=== PATIENT | male | born 1965 | race Caucasian/White ===

== ENCOUNTER 2023-06-24 20:29 | Inpatient (IN) ==
--- OUTSIDE RECORDS SUMMARY | 2023-06-24 20:35 | External Medical Summary | Summary of Care ---
Author Name Unknown Organization [facility] Address [address] [place] [address] Phone [phone] Care Team Providers Care Shake Out Worker Name Role Phone Ricky Perdue MD Primary Care Provider [phone] Reason for Visit * Auth/Cert Specialty Diagnoses / Procedures Referred By Lorraine jensen Referred To Contact Diagnoses History of colon polyps History of colon polyps [Z86.010] Procedures COLONOSCOPY, DIAGNOSTIC (RECTUM) COLONOSCOPY FLEXIBLE PROXIMAL DIAGNOSTIC Referral ID Status Reason Start Date Expiration Date Visits Re quested Visits Authorized [id number] Encounter Details Date Type Department Care Team Description 01/22/2023 Hospital Encounter ENDO [facility], Endoscopy Room [facility] [address] [place] [phone] Roula Drew, [address] [place] [address] Colonoscopy Allergies Active Allergy Reactions Severity Noted Date Comments Morphine And Related 01/14/2005 GI upset documented as of this encounter (statuses as of 01/23/2023) Medications Medication Sig Dispensed Refills Start Date End Date Status CPAP every night at bedtime. 0 Active Omeprazole 20 MG Oral Capsule Delayed Release (PriLOSEC) Take 1 Capsule by mouth in the morning. 30 Capsule 11 07/28/2022 Active Fluticasone Propionate 50 MCG/ACT Nasal Suspension (Flonase)Indicatio ns:Allergic rhinitis, seasonal Administer 2 Sprays into nostril in the morning. 16 g 6 09/16/2022 Active Additional Information Patient taking differently:2 [place] Nasal Daily(AM),Indications: as needed, Reported on 01/21/2023 Gabapentin 100 MG Oral Capsule (Neurontin)Indicat ions:Periodic limb movements of sleep TAKE 1 CAPSULE BY MOUTH ONCE DAILY BEST IF TAKEN 90 MINUTES BEFORE BEDTIME 30 Capsule 3 10/20/2022 Active Oxymetazoline HCl 0.05 % Nasal Solution Administer 2 Sprays into each nostril 2 times a day as needed for Congestion (for congestion). Do not use for more than three days. 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 Prediabetes 07/11/2019 JAIR (obstructive sleep apnea) 04/24/2019 PLMD (periodic limb movement disorder) 0 04/24/2019 Gastroesophageal reflux disease with eso phagitis 11/25/2018 Overview: Severe erosive esophagitis (EGD 2018) Dysfunction of both eustachian tubes documented as of this encounter (statuses as of 01/23/2023) Resolved Problems Problem Noted Date Resolved Date Overweight (BMI 25.0-29.9) 08/25/202208/25 Nocturnal hypoxemia 04/24/2019 11/11/2020 Primary snoring 02/28/2019 01/09/2020 Hypersomnolence disorder 02/28/2019 020 Other seborrheic keratosis 02/13/201408/04 Sebaceous hyperplasia of face 02/13/2014 Melanocytic nevus of lower extremity 02/13/2014 10/20/2018 Carpal tunnel syndrome 05/25/2007 9 ADVANCE DIRECTIVE INFORMATION 04/21/2007 Overview: No, Advance Directive brochure offered , patient declined. documented as of this encounter (statuses as of 01/23/2023) Immunizations Name Administration Dates Next Due COVID-19 mRNA, LNP-s, No Pre serve, 2-Dose Series (Pfizer) 10/09/2020,09/18/2020 COVID-19, LNP-s, No Preserve , Kit-sucrose, Ages 12+ (Pfizer) 07/15/2021 Covid-19, Mrna, Lnp-s, Pf, Bivalent, 30 Mcg, IM, 12 yrs and above (Pfizer) 06/15/2022 Seasonal Influenza, Quadriva lent, No Preserve, 6 Mons & Above, IM 05/15/2022,05/01/2021,05/31/2020, 0 19,07/07/2018 TD - Tetanus/Diptheria (ADULT) 05/15/2003 TDAP (age 10 and older)(Boostrix) 05/10/2013 documented as of this encounter Social History Tobacco Use Types Packs/Day Years Used Date Smoking Tobacco: Never Smokeless Tobacco: Never Alcohol Use Standard Drinks/Week Comments Yes 0 (1 standard drink = 0.6 oz pur e alcohol) 2 beers a month Food Insecurity Answer Date Recorded Within the past 12 months, y ou worried that your food would run out before you got money to buy more. Never true 01/09/2020 Within the past 12 months, t he food you bought just didn't last and you didn't have money to get more. Never true 01/09/2020 Sex Assigned at Date Recorded Not on file Job Start Date Occupation Industry Not on file Not on file Not on file documented as of this encounter Last Filed Vital Signs Vital Sign Reading Time Taken Comments Blood Pressure 122/86 01/22/2023 11:48 AM EDT Pulse 57 01/22/2023 11:48 AM EDT Temperature 36.1 C (97 F) 01/22/2023 11:48 AM EDT Respiratory Rate 16 01/22/2023 11:48 AM EDT Oxygen Saturation 97% 01/22/2023 11:48 AM EDT Inhaled Oxygen Concentration - - Weight 102.1 kg (225 lb) 01/22/2023 10:15 AM EDT Height 182.9 cm (6') 01/22/2023 10:15 AM EDT Body Mass Index 30.52 01/22/2023 10:15 AM EDT documented in this encounter H&P Notes * Roula Drew DO - 01/22/2023 10:27 AM EDT Procedure(s): Colonoscopy; with Indication(s) of colon polyp surveillance Endoscopy Pre-Procedure Assessment: Prior to the procedure, the patient was identified. The patient's history, medications and allergies were reviewed as per the Anesthesia Assessment. The patient is competent. The risks and benefits of the proposed procedure and the planned sedation were discussed with the patient. All questions were answered and informed consent for the procedure was obtained. BP 152/96 | Pulse 76 | Temp (Src) 98.8 (Tympanic) | Resp 18 | Ht 5' 0" (1.524m) | Wt 165 lbs (74.844kg) | BMI 32.22 kg/m | BSA 1.78 m | SaO2 99% | LMP 08/13/2004 Prior to Admission medications Medication Sig Last Dose Discont. Gabapentin 100 MG Oral Capsule (Neurontin) TAKE 1 CAPSULE BY MOUTH ONCE DAILY BEST IF TAKEN 90 MINUTES BEFORE BEDTIME 01/20/2023 Oxymetazoline HCl 0.05 % Nasal Solution Administer 2 Sprays into each nostril 2 times a day as needed for Congestion (for congestion). Do not use for more than three days. Past Week Omeprazole 20 MG Oral Capsule Delayed Release (PriLOSEC) Take 1 Capsule by mouth in the morning. 01/21/2023 CPAP every night at bedtime. 01/20/2023 Fluticasone Propionate 50 MCG/ACT Nasal Suspension (Flonase) Administer 2 Sprays into nostril in the morning. Patient taking differently: Administer 2 Sprays into nostril in the morning. Over 30 Days Review of patient's allergies indicates: Allergen Reactions Morphine And Related GI upset Physical Exam: Mental Status Examination: alert and oriented. Airway Examination: normal oropharyngeal airway and neck mobility. Respiratory Examination: clear to auscultation. CV Examination: rrr, no murmurs, no S-3 or S-4. ASA Grade: II - A patient with mild systemic disease. After reviewing the risks and benefits, the patient was deemed in satisfactory condition to undergothe procedure. The anesthesia plan was to use general anesthesia. documented in this encounter Procedure Notes * Ricky Perdue MD - 01/22/2023 10:38 AM EDTAssociated Order(s): COLONOSCOPY [facility] Patient Name: Javan Lopez Procedure Date: 01/22/2023 10:38 AM Date of : 1965 Admit Type: Outpatient Note Status: Finalized Date of : 1965 Admit Type: Outpatient Age: 57 Room: [facility] Gender: Male Note Status: Finalized Procedure: Colonoscopy Indications: Surveillance: Personal history of adenomatous polyps on last colonoscopy 5 years ago, Last colonoscopy: September 2016 Providers: Roula Drew DO (Doctor) Referring MD: Ricky Perdue MD (Referring MD) Medicines: Propofol per Anesthesia Complications: No immediate complications. Estimated blood loss: None. Procedure: Pre-Anesthesia Assessment: - Prior to the procedure, a History and Physical was performed, and patient medications, allergies and sensitivities were reviewed. The patient's tolerance of previous anesthesia was reviewed. - The risks and benefits of the procedure and the sedation options and risks were discussed with the patient. All questions were answered and informed consent was obtained. - Patient identification and proposed procedure were verified prior to the procedure by the physician and the nurse. The procedure was verified in the pre-procedure area in the procedure room. - Mental Status Examination: alert and oriented. Airway Examination: normal oropharyngeal airway and neck mobility. Respiratory Examination: clear to auscultation. CV Examination: normal. Abdominal Examination: bowel sounds present, abdomen soft and non-tender, no masses or organomegaly noted. - ASA Grade Assessment: II - A patient with mild systemic disease. - The medication list for this patient has been reviewed prior to the procedure and has been determined that the patient may proceed with the planned study. Any medication changes made as a result of the findings of this procedure have been discussed with the patient and/or self pay representative at the time of discharge from the facility. After I obtained informed consent, the scope was passed under direct vision. All instruments were visually inspected immediately before and after removal from the patient to ensure they are fully intact. Throughout the procedure, the patient's blood pressure, pulse, and oxygen saturations were monitored continuously. The [id number] Colonoscope ([id number]) was introduced through the anus and advanced to the cecum, identified by appendiceal orifice and ileocecal valve. The colonoscopy was performed without difficulty. The patient tolerated the procedure well. The quality of the bowel preparation was good. Findings & Specimens: The perianal and digital rectal examinations were normal. Pertinent negatives include normal sphincter tone and no palpable rectal lesions. The entire examined colon appeared normal on direct and retroflexion views. Impression: - The entire examined colon is normal on direct and retroflexion views. - No specimens collected. Recommendation: - Repeat colonoscopy in 5 years for surveillance. - Return to primary care physician as previously scheduled. - Discharge patient to home. Roula Jensen Viki, 01/22/2023 11:02:51 AM This report has been signed electronically. documented in this encounter Nursing Notes * Rosaura Christianson RN - 01/22/2023 11:12 AM EDT 1105 Patient arrived to PACU2 s/p colonoscopy. Patient waking up without complication. No complaints of pain noted. Iv fluids infusing per Md order without complication. Report received by YVETTE. RN at bedside. * Alysia De Jesus RN - 01/22/2023 11:01 AM EDT No abdominal pressure given See anesthesia record for medication administered during procedure. Alysia De Jesus RN Post-procedure scope cleaning began at bedside by endo dermatology technician Pt. Tolerated colonoscopy well, no complications, soundly asleep, abdomen soft, transported to postendoscopy via stretcher by YVETTE. * Cielo Strong RN - 01/22/2023 10:32 AM EDT The following pt discharge instructions reviewed with pt prior to prodedure: No driving today. No alcohol today. No signing of legal documents. Rest as much as possible today and can return to normal activities tomorrow. No operating any heavy equipment today. Diet as tolerated. Pt verbalized understanding. documented in this encounter Plan of Treatment Upcoming Encounters Date Type Specialty Care Team Description 05/07/2023 Office Visit Sleep Disorders Radha Mitchell, DO [address] [place] [id number] Scheduled Procedures Name Priority Associated Diagnoses Date/Ti me ESOPHAGOGASTRODUODENOSCOPY ( EGD), FLEXIBLE, TRANSORAL, DIAGNOSTIC Recall Boucher's esophagus Health Maintenance Due Date Last Done Comments Hepatitis B (1 of 3 - 3-dose series) 1965 HIV Screening 1981 Hepatitis C Screening 1984 Zoster Vaccines (1 of 2) 2016 Depression Screening, Annual for Pts 12 and Over 11/11/2021 11/11/2020 DTaP,Tdap,and Td Vaccines (2 - Td or Tdap) 05/10/2023 05/10/2013, 05/15/2003 HbA1c 08/28/2023 08/28/2022, 09/2021, 01/10/2020, Additional history exists Lipid Panel 10/22/2023 10/21/2018, 01/31, 05/11/2013, Additional history exists COLONOSCOPY-EVERY 5 YRS AGES 18-100 01/23/2028 01/22/2023, 09/18/2016, 09/18/2016 Influenza Vaccine (FLU shot) Completed , 05/01/2021, 05/31/2020, Additional history exists COVID-19 Vaccine Completed 06/15/2022, , 10/09/2020, Additional history exists GARDASIL-HPV IMMUNIZATION SERIES Aged Out No longer eligible based on patient's age to complete this topic MENINGOCOCCAL (MENACTRA/MENVEO) Aged Out No longer eligible based on patient's age to complete this topic Pneumococcal Vaccine: Pediatrics (0 to 5 Years) and At-Risk Patients (6 to 64 Years) Aged Out No longer eligible based on patient's age to complete this topic documented as of this encounter Medical Devices Not on filedocumented as of this encounter Procedures Procedure Name Priority Date/Time Associated Diagnosis Comments COLONOSCOPY 01/22/2023 10:38 AM EDT documented in this encounter Results * COLONOSCOPY (01/22/2023 10:38 AM EDT) 01/22/2023 10:3 8 AM EDT Procedure Note Ricky Perdue MD - 01/22/2023 10:38 AM EDT [facility] Patient Name: Javan Lopez Procedure Date: 01/22/2023 10:38 AM Date of : 1965 Admit Type: Outpatient Note Status:Finalized Date of : 1965 Admit Type: Outpatient Age: 57 Room: [facility] Gender: Male Note Status: Finalized Procedure: Colonoscopy Indications: Surveillance: Personal history of adenomatouspolyps on last colonoscopy 5 years ago, Last colonoscopy: September 2016 Providers: Roula Drew DO (Doctor) Referring MD: Ricky Perdue MD (Referring MD) Medicines: Propofol per Anesthesia Complications: No immediate complications. Estimated blood loss:None. Procedure: Pre-Anesthesia Assessment: - Prior to the procedure, a History and Physicalwas performed, and patient medications, allergies and sensitivities werereviewed. The patient's tolerance of previous anesthesia was reviewed. - The risks and benefits of the procedure and thesedation options and risks were discussed with the patient. All questions wereanswered and informed consent was obtained. - Patient identification and proposed procedurewere verified prior to the procedure by the physician and the nurse. The procedure wasverified in the pre-procedure area in the procedure room. - Mental Status Examination: alert and oriented.Airway Examination: normal oropharyngeal airway and neck mobility. RespiratoryExamination: clear to auscultation. CV Examination: normal. AbdominalExamination: bowel sounds present, abdomen soft and non-tender, no masses ororganomegaly noted. - ASA Grade Assessment: II - A patient with mildsystemic disease. - The medication list for this patient has beenreviewed prior to the procedure and has been determined that the patient may proceedwith the planned study. Any medication changes made as a result of the findingsof this procedure have been discussed with the patient and/or self pay representative atthe time of discharge from the facility. After I obtained informed consent, the scope waspassed under direct vision. All instruments were visually inspected immediatelybefore and after removal from the patient to ensure they are fully intact. Throughout the procedure, the patient's bloodpressure, pulse, and oxygen saturations were monitored continuously. The [id number] ([id number]) was introduced through the anus and advanced to the cecum,identified by appendiceal orifice and ileocecal valve. The colonoscopy was performedwithout difficulty. The patient tolerated the procedure well. The quality of thebowel preparation was good. Findings & Specimens: The perianal and digital rectal examinations were normal. Pertinentnegatives include normal sphincter tone and no palpable rectal lesions. The entire examined colon appeared normal on direct and retroflexionviews. Impression: - The entire examined colon is normal on direct andretroflexion views. - No specimens collected. Recommendation: - Repeat colonoscopy in 5 years for surveillance. - Return to primary care physician as previouslyscheduled. - Discharge patient to home. Roula T DO Viki 01/22/2023 11:02:51 AM This report has been signed electronically. Ricky Perdue MD GASTRO LOWER documented in this encounter Administered Medications Inactive Administered Medications - up to 3 most recent administrations Medication Order MAR Action Action Date Dose Rate Site isolyte-S pH 7.4 infusion Intravenous, at 100 mL/hr, Plasma-LYTE 148, isolyte-S, and isolyte-S pH 7.4 are considered equivalent - including for MAR barcode scanning., CONTINUOUS, Starting on Wed01/22/23 at 1100, Until Wed01/22/23 at 1605, Pre-Op New Bag 01/22/2023 11:00 AM EDT 100 mL/hr isolyte-S pH 7.4 infusion Intravenous, at 100 mL/hr, Plasma-LYTE 148, isolyte-S, and isolyte-S pH 7.4 are considered equivalent - including for MAR barcode scanning., CONTINUOUS, Starting on Wed01/22/23 at 1145, Until Wed01/22/23 at 1605, Post-op documented in this encounter Active and Recently Administered Medications Times are shown in EDT. Continuous Medication Order 01/20/2023 01/21/202301/22/2023 isolyte-S pH 7.4 infusion Intravenous, at 100 mL/hr, Plasma-LYTE 148, isolyte-S, and isolyte-S pH 7.4 are considered equivalent - including for MAR barcode scanning., CONTINUOUS, Starting on Wed01/22/23 at 1100, Until Wed01/22/23 at 1605, Pre-Op 1100 (New Bag - Prov ider: Cielo Strong RN)1106 (Anes Intra-Op Fluid - Provider: Meka Olmstead CRNA) isolyte-S pH 7.4 infusion Intravenous, at 100 mL/hr, Plasma-LYTE 148, isolyte-S, and isolyte-S pH 7.4 are considered equivalent - including for MAR barcode scanning., CONTINUOUS, Starting on Wed01/22/23 at 1145, Until Wed01/22/23 at 1605, Post-op 1145 (Due) documented in this encounter Care Teams Shake Out Worker Relationship Specialty Start Date End Date Ricky Perdue MD [address] [facility] [place] [address] PCP - General Family Medicine 09/22/16 documented as of this encounter
--- OUTSIDE RECORDS SUMMARY | 2023-06-24 20:35 | External Medical Summary | Summary of Care ---
Author Name Unknown Organization [facility] Address [address] [place] [address] Phone [phone] Care Team Providers Care Nick Setter Name Role Phone Ricky Perdue MD Primary Care Provider [phone] Reason for Visit * Reason Onset Date Comments Medication Refill 01/16/2023 Encounter Details Date Type Department Care Team Description 01/16/2023 Refill Family Practice [facility] [address] [facility] [place] [address] [place], [address] [place] [address] Allergic rhinitis, seasonal Allergies Active Allergy Reactions Severity Noted Date Comments Morphine And Related 01/14/2005 GI upset documented as of this encounter (statuses as of 01/29/2023) Medications Medication Sig Dispensed Refills Start Date End Date Status CPAP every night at bedtime. 0 Active Omeprazole 20 MG Oral Capsule Delayed Release (PriLOSEC) Take 1 Capsule by mouth in the morning. 30 Capsule 11 07/28/2022 Active Gabapentin 100 MG Oral Capsule (Neurontin)Indic ations:Periodic limb movements of sleep TAKE 1 CAPSULE [...] Additional Information Patient not taking.Reported on 01/22/2023 Fluticasone Propionate 50 MCG/ACT Nasal Suspension (Flonase)Indicat ions:Allergic rhinitis, seasonal Administer 2 Sprays into nostril in the morning. 16 g 6 01/29/2023 Active Fluticasone Propionate 50 MCG/ACT Nasal Suspension (Flonase)Indicat ions:Allergic rhinitis, seasonal Administer 2 Sprays into nostril in the morning. 16 g 6 09/16/2022 3 Discontinue d(Refill) documented as of this encounter (statuses as of 01/29/2023) Active Problems Problem Noted Date Obesity, Class [...] as of this encounter (statuses as of 01/29/2023) Resolved Problems Problem Noted Date Resolved Date [...] as of this encounter (statuses as of 01/29/2023) Immunizations Name Administration Dates Next Due COVID-19 mRNA, LNP-s, No Pre serve, 2-Dose Series ([employer]) 10/09/2020,09/18/2020 COVID-19, LNP-s, No Preserve , Kit-sucrose, [...] on file documented as of this encounter Miscellaneous Notes * Telephone Encounter - Ara Mitchell DO - 01/29/2023 4:03 PM EDTSigned Prescriptions: Disp Refills Fluticasone Propionate 50 MCG/ACT Nasal Hernandez*16 g 6 Sig: Administer 2 Sprays into nostril in the morning. Authorizing Provider: ARA MITCHELL * Telephone Encounter - Eve [place] DO - 01/18/2023 9:20 AM EDT Pending Prescriptions: Disp Refills Fluticasone Propionate 50 MCG/ACT Nasal Hernandez*16 g 6 Sig: Administer 2 Sprays into nostril in the morning. * Telephone Encounter - Elisa Mcfadden LPN - 01/18/2023 8:03 AM EDTPending Prescriptions: Disp Refills Fluticasone Propionate 50 MCG/ACT Nasal Hernandez*16 g 6 Sig: Administer 2 Sprays into nostril in the morning. documented in this encounter Plan of Treatment Upcoming Encounters Date Type Specialty Care Team Description 05/07/2023 Office Visit Sleep Disorders Ara Mitchell DO [address] [place] [id number] Scheduled Procedures Name Priority Associated Diagnoses Date/Ti [...] COLONOSCOPY-EVERY 5 YRS AGES 18-100 01/23/2028 01/22/2023, 01/22/2023, 09/18/2016, Additional history exists Influenza Vaccine (FLU shot) Completed , 05/01/2021, [...] Not on filedocumented as of this encounter Visit Diagnoses Diagnosis Allergic rhinitis, seasonal Allergic rhinitis, cause unspecified documented in this encounter Care Teams Nick Setter Relationship Specialty Start Date End Date Ricky Perdue MD [address] [facility] [place] [address] PCP - General Family Medicine 09/22/16 documented as of this encounter
--- OUTSIDE RECORDS SUMMARY | 2023-06-24 20:35 | External Medical Summary | Summary of Care ---
Author Name Unknown Organization [facility] Address [address] [place] [address] Phone [phone] Care Team Providers Care Microsoft Infrastructure Consultant Name Role Phone Ricky Perdue MD Primary Care Provider [phone] Reason for Visit * Reason Onset Date Comments Medication Administration 04/27/2023 Flu an d/or Pneumo Inj Encounter Details Date Type Department Care Team Description 04/27/2023 Immunization Ancillary [facility] [address] [place] [address] [facility] [address] [place] [address] Need for prophylactic vaccination and inoculation against influenza* Allergies Active Allergy Reactions Severity Noted Date Comments Morphine And Related 01/14/2005 GI upset documented as of this encounter (statuses as of 04/27/2023) Medications Medication Sig Dispensed Refills Start Date End Date Status CPAP every night at bedtime. 0 Active Omeprazole 20 MG Oral Capsule Delayed Release (PriLOSEC) Take 1 Capsule by mouth in the morning. 30 Capsule 11 07/28/2022 Active Oxymetazoline HCl 0.05 % Nasal Solution Administer 2 Sprays into each nostril 2 times a day as needed for Congestion (for congestion). Do not use for more than three days. 15 mL 0 10/15/2022 Active Additional Information Patient not taking.Reported on 01/22/2023 Fluticasone Propionate 50 MCG/ACT Nasal Suspension (Flonase)Indicatio ns:Allergic rhinitis, seasonal Administer 2 Sprays into nostril in the morning. 16 g 6 01/29/2023 Active Gabapentin 100 MG Oral Capsule (Neurontin)Indicat ions:Periodic limb movements of sleep TAKE 1 CAPSULE BY MOUTH ONCE DAILY 90 MINUTES BEFORE BEDTIME 30 Capsule 3 02/05/2023 Active documented as of this encounter (statuses as of 04/27/2023) Active Problems Problem Noted Date Obesity, Class [...] as of this encounter (statuses as of 04/27/2023) Resolved Problems Problem Noted Date Resolved Date [...] as of this encounter (statuses as of 04/27/2023) Immunizations Name Administration Dates Next Due COVID-19 mRNA, LNP-s, No Pre serve, 2-Dose Series ([employer]) 10/09/2020,09/18/2020 COVID-19, LNP-s, No Preserve , Kit-sucrose, Ages 12+ ([employer]) 07/15/2021 Covid-19, Mrna, Lnp-s, Pf, Bivalent, 30 Mcg, IM, 12 yrs and above (Pfizer) 06/15/2022 Seasonal Influenza, PF, 6 mo ns & Above, IM , (Flulaval) 04/27/2023,05/15/2022,05/01/2021, 0 20,05/30/2019,07/07/2018 TD - Tetanus/Diptheria (ADULT) 05/15/2003 TDAP (age [...] on file documented as of this encounter Progress Notes * Leeanne Johnston LPN - 04/27/2023 11:54 AM EDT PRE - ADMINISTRATION DOCUMENTATION Are you experiencing any cold symptoms or fever? No Have you had Guillain-[place] Syndrome (an illness that causes paralysis) within the last 6 weeks? No Have you had the flu shot in the past? YES Have you ever had a reaction to the flu shot? No Leeanne Johnston LPN, 04/27/2023 11:54 AM Immunization Administration Documentation Time Out Procedure Performed: Yes Patient Identified (Ask Name/Date of ): Yes Does the patient have a fever greater than 101 degrees today? No Patient allergic to latex? No VFC Stock: No Injection(s) verified: Yes, Injection Name: Flulaval Verified Side and Site: Yes Verified Shot(s) with Parent(s)/Patient: Yes documented in this encounter Plan of Treatment Upcoming Encounters Date Type Specialty Care Team Description 08/18/2023 Office Visit Sleep Disorders Lien Peters CRNP [address] [place] [address] Scheduled Procedures Name Priority Associated Diagnoses Date/Ti me ESOPHAGOGASTRODUODENOSCOPY ( EGD), FLEXIBLE, TRANSORAL, DIAGNOSTIC Recall Boucher's esophagus Health Maintenance Due Date Last Done Comments Hepatitis B (1 of 3 - 3-dose series) 1966 HIV Screening 1981 Hepatitis C Screening 1984 Zoster Vaccines (1 of 2) 2016 Depression Screening 11/11/2021 11/11/2020 DTaP,Tdap,and Td Vaccines (2 - Td or Tdap) 05/10/2023 05/10/2013, 05/15/2003 HbA1c 08/28/2023 08/28/2022, 09/2021, 01/10/2020, Additional history exists Lipid Panel 10/22/2023 10/21/2018, 01/31, 05/11/2013, Additional history exists COLONOSCOPY-EVERY 5 YRS AGES 18-100 01/23/2028 01/22/2023, 01/22/2023, 09/18/2016, Additional history exists COVID-19 Vaccine Completed 06/15/2022, , 10/09/2020, Additional history exists Influenza Vaccine (FLU shot) Completed , 05/15/2022, 05/01/2021, Additional history exists GARDASIL-HPV IMMUNIZATION SERIES Aged [...] as of this encounter Visit Diagnoses Diagnosis Need for prophylactic vaccination and inoculation against influenza- Primary documented in this encounter Care Teams Microsoft Infrastructure Consultant Relationship Specialty Start Date End Date Ricky Perdue MD [address] [place] [address] PCP - General Family Medicine 09/22/16 documented as of this encounter
--- OUTSIDE RECORDS SUMMARY | 2023-06-24 20:35 | External Medical Summary | Summary of Care ---
Author Name Unknown Organization [facility] Address [address] [place] [address] Phone [phone] Care Team Providers Care Family Psychologist Name Role Phone Ricky Perdue MD Primary Care Provider [phone] Reason for Visit * Reason Onset Date Comments Durable Medical Equipment 03/08/2023 CPAP R esupply Encounter Details Date Type Department Care Team Description 03/08/2023 Telephone Sleep Lab [facility] [address] [place] [address] Renaldo Ramires, JUNIOR ART DIRECTOR Durable Medical Equipment (CPAP Resupply ) Allergies Active Allergy Reactions Severity Noted Date Comments Morphine And Related 01/14/2005 GI upset documented as of this encounter (statuses as of 03/10/2023) Medications Medication Sig Dispensed Refills Start Date [...] as of this encounter (statuses as of 03/10/2023) Active Problems Problem Noted Date Obesity, Class [...] as of this encounter (statuses as of 03/10/2023) Resolved Problems Problem Noted Date Resolved Date [...] as of this encounter (statuses as of 03/10/2023) Immunizations Name Administration Dates Next Due COVID-19 mRNA, LNP-s, No Pre serve, 2-Dose Series ([employer]) 10/09/2020,09/18/2020 COVID-19, LNP-s, No Preserve , Kit-sucrose, Ages 12+ (Pfizer) 07/15/2021 Covid-19, Mrna, Lnp-s, Pf, Bivalent, 30 Mcg, IM, 12 yrs and above ([employer]) 06/15/2022 Seasonal Influenza, Quadriva lent, No Preserve, [...] encounter Miscellaneous Notes * Telephone Encounter - Renaldo Ramires RRT - 03/08/2023 2:22 PM EDT PPM Order [id number] Order Items Add Items to Order: Enter Product Id or Description Product Number Qty Description Remove [id number] DREAM STATION DISPOSABLE ULTRA-FINE FILTER - 6-PACK Remove [id number] 1 DREAM STATION REUSABLE POLLEN FILTER - 1-PACK Remove [id number] AIRFIT F20 MEDIUM CUSHION * Telephone Encounter - JAIR Matthews - 03/08/2023 1:41 PM EDT [facility] [id number] MADDIE BS [employer] Eligible for non disp filters, and 3 months supply cushions and disp filters Pt request for specific supplies at this time * Telephone Encounter - Renaldo Ramires RRT - 03/08/2023 8:46 AM EDT Contacted via: email and phone Requested items: cushions, disp and non disp filters only Mask: Resmed Airfit F20 FFM-Medium Tubing: PR15 Machine: DS1 Last office visit: 04/28/2022 Order date: 09/07/2022 Current insurance: [employer] [id number] Compliance data:Compliance Information 02/06/2023 - 03/07/2023 Compliance Summary 02/06/2023 - 03/07/2023 (30 days) Days with Device Usage 30 days Days without Device Usage 0 days Percent Days with Device Usage 100.0% Percent of Days with Usage >= 4 Hours 96.7% Percent of Days with Usage < 4 Hours 3.3% Beata Lopez < > Renaldo Ramires 03/07/2023 11:29 AM External: Be careful with links and files. If suspicious, alert the Medical Reception Office. Questions? Call [phone] Ramon Macario, I need the following: Cushions Filters Washable filter Vanna Edouard documented in this encounter Plan of Treatment Upcoming Encounters Date Type Specialty Care Team Description 05/07/2023 Office Visit Sleep Disorders Radha Mitchell, DO [address] [place] [address] Scheduled Procedures Name Priority Associated Diagnoses Date/Ti me ESOPHAGOGASTRODUODENOSCOPY ( EGD), FLEXIBLE, TRANSORAL, DIAGNOSTIC Recall Boucher's esophagus Health Maintenance Due Date Last Done Comments Hepatitis B (1 of 3 - 3-dose series) 1966 HIV Screening 1981 Hepatitis C Screening 1984 Zoster Vaccines (1 of 2) 2016 Depression Screening, Annual for Pts 12 and Over 11/11/2021 11/11/2020 Influenza Vaccine (FLU shot) (#1) 2023 05/15/2022, 05/01/2021, 05/31/2020, Additional history exists DTaP,Tdap,and Td Vaccines (2 - Td or [...] Not on filedocumented as of this encounter Care Teams Family Psychologist Relationship Specialty Start Date End Date Ricky Perdue MD [address] [place] [address] PCP - General Family Medicine 09/22/16 documented as of this encounter
--- OUTSIDE RECORDS SUMMARY | 2023-06-24 20:35 | External Medical Summary | Summary of Care ---
Author Name Unknown Organization [facility] Address [address] [place] [address] Phone [phone] Care Team Providers Care Computer Service Technician Name Role Phone Ricky Perdue MD Primary Care Provider [phone] Reason for Visit * Reason Comments eRx-Medication Refill Encounter Details Date Type Department Care Team (Late st Contact Info) Description 06/18/2023 [facility] [address] [place] [address] Ara Mitchell, [address] [place] [address] Periodic limb movements of sleep Allergies Active Allergy Reactions Criticality Noted Date Comments Morphine And Related 01/14/2005 GI upset documented as of this encounter (statuses as of 06/19/2023) Medications Medication Sig Dispensed Refills Start Date [...] 01/29/2023 Active Gabapentin 100 MG Oral Capsule (Neurontin)Indic ations:Periodic limb movements of sleep TAKE 1 CAPSULE BY MOUTH ONCE DAILY 90 MINUTES BEFORE BEDTIME 30 Capsule 3 06/19/2023 Active Gabapentin 100 MG Oral Capsule (Neurontin)Indic ations:Periodic limb movements of sleep TAKE 1 CAPSULE BY MOUTH ONCE DAILY 90 MINUTES BEFORE BEDTIME 30 Capsule 3 02/05/2023 3 Discontinued documented as of this encounter (statuses as of 06/19/2023) Active Problems Problem Noted Date Diagnosed Date Obesity, Class I, BMI 30.0-34.9 (see actual BMI) 08/25/2022 Lumbar degenerative disc disease 08/25/2022 Boucher's esophagus without dysplasia 11/10/2020 Prediabetes 07/11/2019 JAIR (obstructive sleep apnea) 04/24/2019 PLMD (periodic limb movement disorder) 9 Gastroesophageal reflux disease with esophagitis 11/25/2018 Overview: Severe erosive esophagitis (EGD 2018) Dysfunction of both eustachian tubes 10/20/2018 documented as of this encounter (statuses as of 06/19/2023) Resolved Problems Problem Noted Date Diagnosed Date Resolved Date Overweight (BMI 25.0-29.9) 08/25/2022 0 08/25/2022 Nocturnal hypoxemia 04/24/2019 11/12/19 21 Primary snoring 02/28/2019 01/09/2020 Hypersomnolence disorder 02/28/201904/2020 Other seborrheic keratosis 02/13/2014 0 08/04/2018 Sebaceous hyperplasia of face 02/13/2014 08/04/2018 Melanocytic nevus of lower extremity 02/13/2014 10/20/2018 Carpal tunnel syndrome 05/25/200708/04 ADVANCE DIRECTIVE INFORMATION 04/21/2007 07/09/2016 Overview: No, Advance Directive brochure offered , patient declined. documented as of this encounter (statuses as of 06/19/2023) Immunizations Name Administration Dates Next Due COVID-19 mRNA, LNP-s, No Pre serve, 2-Dose Series ([employer]) 10/09/2020,09/18/2020 COVID-19, LNP-s, No Preserve , Kit-sucrose, Ages 12+ (Pfizer) 07/15/2021 Covid-19, Mrna, Lnp-s, Pf, Bivalent, 30 Mcg, IM, 12 yrs and above (Pfizer) 06/15/2022 SEASONAL INFLUENZA, PF, 6 M & Above, IM , (FLULAVAL or FLUZONE) 04/27/2023,05/15/2022,05/01/2021, 0 20,05/30/2019,07/07/2018 TD - Tetanus/Diptheria (ADULT) 05/15/2003 TDAP (age 10 and older)([employer]) 05/10/2013 documented as of this encounter Social History Tobacco Use Types Packs/Day Years Used Date Smoking Tobacco: Never Smokeless Tobacco: Never Alcohol Use Standard Drinks/Week Comments Yes 0 (1 standard drink = 0.6 oz pur e alcohol) 2 beers a month PHQ-2 Answer Date Recorded PHQ Adult Total Score 0 11/11/2020 Hunger Vital Sign Answer Date Recorded Worried About Running Out of Food in the Last Ye ar Never true 01/09/2020 Ran Out of Food in the Last Year Never true 01/09/2020 Sex and Gender Information Value Date Recorded Sex Assigned at Not on file Gender Identity Not on file Sexual Orientation Not on file Job Start Date Occupation Industry Not on file Not on file Not on file documented as of this encounter Miscellaneous Notes * Telephone Encounter - Ara Mitchell DO - 06/19/2023 6:26 PM ESTSigned Prescriptions: Disp Refills Gabapentin 100 MG Oral Capsule (Neurontin) 30 Cap*3 Sig: TAKE 1 CAPSULE BY MOUTH ONCE DAILY 90 MINUTES BEFORE BEDTIMEAuthorizing Provider: ARA MITCHELL------- documented in this encounter Plan of Treatment Upcoming Encounters Date Type Department Care Team (Late st Contact Info) Description 08/18/2023 4:00 PM EST Office Visit Sleep Disorders Ctr [facility] [address] [place] [address] Lien Peters CRNP [address] [place] [address] Scheduled Procedures Name Priority Associated Diagnoses Date/Ti me COLONOSCOPY FLEXIBLE PROXIMAL DIAGNOSTIC Recall History of colon polyps ESOPHAGOGASTRODUODENOSCOPY ( EGD), FLEXIBLE, TRANSORAL, DIAGNOSTIC Recall Boucher's esophagus Health Maintenance Due Date Last Done Comments Hepatitis B (1 of 3 - 3-dose series) 1966 HIV Screening 1981 Hepatitis C Screening 1984 Zoster Vaccines (1 of 2) 2016 Depression Screening 11/11/2021 11/11/2020 COVID-19 Vaccine ( season) 2023 06/15/2022, 07/15/2021, 10/09/2020, Additional history exists DTaP,Tdap,and Td Vaccines (2 - Td or Tdap) 05/10/2023 05/10/2013, 05/15/2003 HbA1c 08/28/2023 08/28/2022, 09/2021, 01/10/2020, Additional history exists Lipid Panel 10/22/2023 10/21/2018, 01/31, 05/11/2013, Additional history exists Boucher's Esophagus Surveilance 10/26/2023 10/25/2020, 01/20/2019, 11/25/2018 COLONOSCOPY-EVERY 5 YRS AGES 18-100 01/23/2028 01/22/2023, [...] as of this encounter Visit Diagnoses Diagnosis Periodic limb movements of sleep Periodic limb movement disorder documented in this encounter Care Teams Computer Service Technician Relationship Specialty Start Date End Date Ricky Perdue MD [address] [place] [address] PCP - General Family Medicine 09/22/16 documented as of this encounter
[2023-06-24] MEDS ORDERED: OPTIRAY 320 125ml IV ONE (20:51)
--- NOTE | 2023-06-24 20:53 | Emergency Department Note ---
Impression & Plan Right leg weakness, Dysmetria, Stroke-like symptoms ED Provider Note NAME: TRACEY AGUIRRE AGE: 58 SEX: M : 1965 ARRIVES VIA: Walk-In INFORMANT: Patient, ED PROVIDER(S): Manoj Montano DO CHIEF COMPLAINT: Strokelike symptoms HPI: The patient is a 58-year-old male who presented to the emergency department for an evaluation of strokelike symptoms. The patient states that he sneezed forcibly and then had an acute onset of right leg weakness. The patient was having difficulty ambulating. Initially he thought he was having an anxiety attack but he came to the emergency department with family for further evaluation. The patient arrived through triage. He states his symptoms began approximately 8 PM. The patient was placed into a room. After my evaluation I made the patient a stroke alert. He denies having any chest pain. He denies having any nausea or vomiting. He denies having any abdominal pain or back pain. He denies having any neck pain. The patient has no history of similar symptoms. ROS: See above HPI for pertinent positives & negatives. A total of 10 systems reviewed and were otherwise negative. PAST MEDICAL HISTORY: See Below PAST SURGICAL HISTORY: See Below FAMILY HISTORY: See Below SOCIAL HISTORY: See Below HOME MEDICATIONS: See Below ALLERGIES: See Below VITALS: See Below PHYSICAL EXAMINATION: GENERAL: The patient is awake and alert. He is very anxious appearing. EYES: The conjunctivae are clear. The pupils are round and reactive. EARS, NOSE, MOUTH AND THROAT: The nose is without any evidence of any deformity. NECK: The neck is nontender and supple. RESPIRATORY: Normal respiratory effort is noted there is no evidence of wheezing rhonchi or rales CARDIOVASCULAR: Regular rate and rhythm noted there no murmurs rubs or gallops normal S1 normal S2. GASTROINTESTINAL: The abdomen is soft. Abdomen is nontender. MUSCULOSKELETAL/EXTREMITIES: There is no evidence of gross deformity full range of motion is noted in the hips and shoulders. SKIN: There is no obvious evidence of any rash. There are no petechiae, pallor or cyanosis noted. NEUROLOGIC: Patient is awake alert and oriented x3. Patellar tendon reflexes are 2+ bilaterally. The patient is able to hold the left leg off the bed for greater than 5 seconds however when he tries to bring the right leg off the bed it becomes tremulous and drops to the bed after only few seconds. MEDICAL DECISION MAKING: The patient is a 58-year-old male who presented to the emergency department with strokelike symptoms. The patient's NIH was found to be 3 in the emergency department on initial evaluation. The patient initially presented through triage and was not made a stroke alert. After my evaluation the patient was made a stroke alert. He was reevaluated multiple times. I discussed the patient's laboratory and radiographic studies with him. I also discussed the time limitation of giving the patient TNK. Ultimately the patient was evaluated by the telestroke neurologist. The patient's presentation was not clear-cut. Family as well as the patient required multiple explanations of TNK and the indications for thrombolytics. Ultimately they did agree to TNK administration and this was ordered by myself. The patient had acceptable blood pressure noted on multiple occasions. [facility] evaluate the patient in the emergency department. Triage Nursing notes reviewed. Prior medical records reviewed Vital Signs: reviewed and remarkable for no significant abnormalities Differential diagnosis: Infection, dehydration, metabolic abnormality, hypo/hyperglycemia, electrolyte disturbance, anemia, hypoxia, cardiac sources, intracerebral event, toxicologic, neurologic, as well as other pathologies. ER treatment provided: See below Diagnostics interpreted by me: ECG: EKG was obtained in the emergency department. My interpretation is sinus rhythm at 66 bpm. There was no PVCs noted. Right bundle branch block pattern was noted. No previous tracing was available. Cardiac Monitoring: An order was placed for continuous cardiac monitoring. The monitor shows a rate of 66 beats per minute with sinus rhythm. Laboratory studies: As stated above and show below. Imaging studies: See below. Radiographic imaging was reviewed by myself Consultation(s): I discussed this case with Dr. Juan who is on for stroke neurology at [facility]. I discussed this case with Dr. Kelley who [facility] ED COURSE: Procedures: none Critical Care: I have personally spent greater than 45 minutes of critical care time in the direct management of this patient. This includes bedside care, interpretation of diagnostic studies, and testing, discussion with consultants, patient, and family members, and other required patient management activities. This 45 minutes is in excess of all separately billable procedures. Thrombolytics MDM Reason(s) for Delay: There was an extensive discussion with the family because of the vague symptoms that he presented with. Initially the patient was unsure about receiving TNK. Myself as well as the [facility] teleneurologist discussed the risk and benefits multiple times. Ultimately the patient did agree to TNK administration. Past Med/Surg History Social History Smoking Status: Never smoker Hx Alcohol Use: Yes Alcohol type: beer Hx Substance Use: No Preferred Language: Frisian Communication Ability: Effective Master Control Technician Required: No Beliefs That Will Affect Care: None Current Living Situation: Spouse Other Information That Helps Us Care for You: No Feels Safe at Home: Yes Safety Concerns: Feels Safe At This Time Assistive Devices: Glasses Allergies Allergies Allergy/AdvReac Type Severity Reaction Status Date / Time codeine AdvReac Nausea Verified 06/24/23 22:00 Home Meds Home Medications Medication Instructions Recorded Confirmed fluticasone propionate 50 2 spray intranasal QAM 06/24/23 06/24/23 mcg/actuation nasal spray,suspension gabapentin 100 mg capsule 100 mg PO HS 06/24/23 06/24/23 omeprazole 20 mg capsule,delayed 20 mg PO DAILY 06/24/23 06/24/23 release Results & Data (ED) Vital Signs Vital Signs - 24 hr 06/24/23 20:31 06/24/23 21:09 06/24/23 21:10 Temperature 36.7 C Temperature Source Temporal Artery Scan Pulse Rate 73 71 71 Pulse Rate [Apical] Pulse Rhythm Regular Pulse Rhythm [Apical] Pulse Strength Normal Pulse Strength [Apical] Respiratory Rate 17 18 Respiratory Effort / Characteristics Non-Labored Spontaneous Respiratory Depth Normal Respiratory Pattern Regular Blood Pressure 153/89 H 148/91 H Blood Pressure [Left Arm] Blood Pressure Mean 110 110 Blood Pressure Mean [Left Arm] Blood Pressure Position Sitting Blood Pressure Position [Left Arm] Pulse Oximetry 96 95 Oxygen Delivery Method Room Air Room Air Sepsis Recent Fever Within 48 Hours No Sepsis New/Unexplained Change in Mental Status N/A Sepsis Action Taken by Nursing No Action Required 06/24/23 21:30 06/24/23 21:45 06/24/23 21:45 Temperature 36.9 C Temperature Source Oral Pulse Rate 73 Pulse Rate [Apical] 65 68 Pulse Rhythm Pulse Rhythm [Apical] Pulse Strength Pulse Strength [Apical] Respiratory Rate 18 18 16 Respiratory Effort / Characteristics Non-Labored Spontaneous Respiratory Depth Normal Respiratory Pattern Regular Blood Pressure 156/91 H Blood Pressure [Left Arm] 153/97 H 151/102 H Blood Pressure Mean 112 Blood Pressure Mean [Left Arm] 115 118 Blood Pressure Position Blood Pressure Position [Left Arm] Semi-fowlers Lying Pulse Oximetry 94 97 93 Oxygen Delivery Method Room Air Room Air Sepsis Recent Fever Within 48 Hours Sepsis New/Unexplained Change in Mental Status Sepsis Action Taken by Nursing 06/24/23 22:00 06/24/23 22:15 06/24/23 22:30 Temperature 36.8 C Temperature Source Oral Pulse Rate Pulse Rate [Apical] 72 66 67 Pulse Rhythm Pulse Rhythm [Apical] Pulse Strength Pulse Strength [Apical] Respiratory Rate 16 16 16 Respiratory Effort / Characteristics Non-Labored Spontaneous Non-Labored Spontaneous Non-Labored Spontaneous Respiratory Depth Normal Normal Normal Respiratory Pattern Regular Regular Regular Blood Pressure Blood Pressure [Left Arm] 149/93 H 150/93 H 148/91 H Blood Pressure Mean Blood Pressure Mean [Left Arm] 111 112 110 Blood Pressure Position Blood Pressure Position [Left Arm] Semi-fowlers Semi-fowlers Semi-fowlers Pulse Oximetry 94 93 95 Oxygen Delivery Method Room Air Room Air Room Air Sepsis Recent Fever Within 48 Hours Sepsis New/Unexplained Change in Mental Status Sepsis Action Taken by Nursing 06/24/23 22:45 Temperature 36.7 C Temperature Source Oral Pulse Rate Pulse Rate [Apical] 66 Pulse Rhythm Pulse Rhythm [Apical] Regular Pulse Strength Pulse Strength [Apical] Normal Respiratory Rate 16 Respiratory Effort / Characteristics Non-Labored Spontaneous Respiratory Depth Normal Respiratory Pattern Regular Blood Pressure Blood Pressure [Left Arm] 137/95 Blood Pressure Mean Blood Pressure Mean [Left Arm] 109 Blood Pressure Position Blood Pressure Position [Left Arm] Semi-fowlers Pulse Oximetry 94 Oxygen Delivery Method Room Air Sepsis Recent Fever Within 48 Hours Sepsis New/Unexplained Change in Mental Status Sepsis Action Taken by [facility] Medications Current Medication List: was personally reviewed by me Laboratory Data Attestation: I reviewed the patient's lab results. 06/24/23 20:46 06/24/23 22:05 Lab Results 06/24/23 06/24/23 Range/Units 20:46 22:05 WBC 6.61 (4.8-10.8) K/ul RBC 4.89 (4.70-6.10) M/uL Hgb 15.6 (14.0-18.0) g/dl Hct 45.1 (42.0-52.0) % MCV 92.2 (80.0-100.0) fL MCH 31.9 (25.0-34.0) pg MCHC 34.6 (32.0-36.0) g/dL RDW Std Deviation 43.0 (36.4-46.3) fL RDW Coeff of Antonette 12.7 (11.5-14.5) % Plt Count 202 (130-400) K/uL MPV 12.1 (9.4-12.4) fL Immature Gran % (Auto) 0.3 % Neut % (Auto) 58.4 % Lymph % (Auto) 25.0 % [place] % (Auto) 11.0 % Eos % (Auto) 4.2 % Baso % (Auto) 1.1 % Neut # (Auto) 3.86 (1.40-6.50) K/uL Lymph # (Auto) 1.65 (1.20-3.40) K/uL [place] # (Auto) 0.73 H (0.11-0.59) K/uL Eos # (Auto) 0.28 (0.00-0.50) K/uL Baso # (Auto) 0.07 (0.00-0.20) K/uL Immature Gran # (Auto) 0.02 (0.01-0.20) K/uL PT 10.8 (9.0-12.0) Seconds INR 1.0 (0.9-1.1) APTT 28.5 (21.0-31.0) Seconds PTT Ratio 1.0 Sodium 137 (136-145) mmol/L Potassium TNP 4.3 Chloride 107 (98-107) mmol/L Carbon Dioxide 23 (21-32) mmol/L Anion Gap 7 (3-11) BUN 17 (6-23) mg/dl Creatinine 1.66 H (0.6-1.4) mg/dl Est Cr Clr Drug Dosing 60.7 ml/min Est GFR ( Amer) 52.2 ml/min Est GFR (Non-Af Amer) 45.1 ml/min BUN/Creatinine Ratio 10.2 (10-20) Glucose 153 H (70-99(Fasting)) mg/dl Calcium 9.2 (8.6-10.3) mg/dl Magnesium TNP 2.0 Total Bilirubin 0.3 (0.2-1.0) mg/dl AST TNP 17 ALT 19 (7-52) U/L Alkaline Phosphatase 92 (34-104) U/L Troponin I High Sens 3.1 (0-20) pg/ml Total Protein 7.2 (6.0-8.3) gm/dl Albumin 4.1 (3.4-5.0) gm/dl Globulin 3.1 (2.5-4.0) gm/dl Albumin/Globulin Ratio 1.3 (0.9-2) Administered Medications Magnesium Sulfate/Dextrose (Magnesium Sulfate / D5w) 1 gm in 100 mls @ 100 mls/hr IV NOW STA Stop: 06/24/23 23:00 Last Admin: 06/24/23 22:08 Dose: 100 mls/hr Documented By: ALBERTO Discontinued Medications Tenecteplase 25 mg/ Syringe 5 mls @ 60 mls/min IV NOW ONE; Protocol Stop: 06/24/23 21:32 Last Admin: 06/24/23 21:44 Dose: 60 mls/min Documented By: ALBERTO Co-signed By: KRISTY Sodium Chloride (Nss) 500 mls @ 999 mls/hr IV .Q31M ONE Stop: 06/24/23 22:30 Last Infusion: 06/24/23 22:39 Dose: Infused Documented By: Admin: 06/24/23 22:08 Dose: 999 mls/hr Documented By: ALBERTO Ioversol (Optiray 320 125ml) 115 ml IV ONCE ONE Stop: 06/24/23 20:52 Last Admin: 06/24/23 20:51 Dose: 115 ml Documented By: PEE Miscellaneous (Stat Iv/Im) 1 each N/A NOW STA Stop: 06/24/23 21:22 Last Admin: 06/24/23 22:08 Dose: Not Given Documented By: ALBERTO Sodium Chloride (Sodium Chloride 0.9% 10ml Flush) 20 ml IV NOW STA Stop: 06/24/23 21:22 Last Admin: 06/24/23 21:45 Dose: 20 ml Documented By: ALBERTO Imaging Data Attestation: I personally reviewed and interpreted this imaging study as follows: My Impression: CT of the brain was obtained in the emergency department. My interpretation is no intracranial hemorrhage or mass effect, final report below. 1 view chest x-ray was obtained in the emergency department. My interpretation is no free air or definite infiltrate, final report pending. CT dissection study of the chest was obtained. My interpretation is no free air or definite infiltrate, final report below. Radiologist's Impression: Chest CTA 06/24/23 20:41 Exam(s): CTA CHEST W/WO Contrast IV Amt: 115 ml optiray 320 EXAM: CT Angiography Chest Without and With Intravenous Contrast CLINICAL HISTORY: Reason for exam: leg weakness. TECHNIQUE: Axial computed tomographic angiography images of the chest without and with intravenous contrast. CTDI is 18.18 mGy and DLP is 1105.24 mGy-cm. Automated exposure control was utilized for the study. A dose lowering technique was utilized adhering to the principles of ALARA. MIP reconstructed images were created and reviewed. CONTRAST: Patient received 115 ml optiray 320 of IV contrast COMPARISON: None. FINDINGS: Pulmonary arteries: Unremarkable. No pulmonary embolism. Aorta: No acute findings. No thoracic aortic aneurysm. Lungs: Right upper lobe nodule measuring 11 mm. Trace posterior dependent atelectasis. The remainder of the lung parenchyma is clear. Pleural space: Unremarkable. No significant effusion. No pneumothorax. Heart: Unremarkable. No cardiomegaly. No significant pericardial effusion. No evidence of RV dysfunction. Normal cardiac size with mild coronary artery calcifications. Bones/joints: No acute fracture. No dislocation. Soft tissues: There is mild lateral hernia with fluid within the distal esophagus consistent with reflux. Lymph nodes: Unremarkable. No enlarged lymph nodes. IMPRESSION: 1. No pulmonary embolus or aortic dissection. 2. Right upper lobe nodule measuring 11 mm, recommend follow-up CT chest at 6 months interval to evaluate stability or evaluation with PET scan to determine and to benign versus malignant. 3. Minimal posterior dependent atelectasis, otherwise no acute cardio pulmonary disease. Electronically signed by: Chelsey Felix MD 06/24/23 22:[address] 06/24/23 20:41 CR Exam(s): CT HEAD Without Contrast EXAM: CT Head Without Intravenous Contrast CLINICAL HISTORY: Reason for exam: neuro deficit, acute stroke suspected. TECHNIQUE: Axial computed tomography images of the head/brain without intravenous contrast. CTDI is 36.43 mGy and DLP is 546.36 mGy-cm. Automated exposure control was utilized for the study. A dose lowering technique was utilized adhering to the principles of ALARA. COMPARISON: None. FINDINGS: Brain: Mild generalized brain atrophy. No hemorrhage. No significant white matter disease. Ventricles: Unremarkable. No ventriculomegaly. Bones/joints: Unremarkable. No acute fracture. Soft tissues: Unremarkable. Sinuses: Small mucus with denser cyst versus polyp within the right maxillary sinus measuring 7 mm. Remainder of the paranasal sinuses are clear. Mastoid air cells: Unremarkable as visualized. Normal bilateral mastoid air cells. IMPRESSION: Involutional changes otherwise normal CT brain for age. Communications: Call Doctor Stroke Electronically signed by: Chelsey Felix MD 06/24/23 21:19 PM Head CTA 06/24/23 20:41 CR Exam(s): CTA HEAD With Contrast IV Amt: 115 ml optiray 320 EXAM: CT Angiography Head With Intravenous Contrast CLINICAL HISTORY: Reason for exam: neuro deficit, acute stroke suspected. TECHNIQUE: Axial computed tomographic angiography images of the head with intravenous contrast. CTDI is 25.68 mGy and DLP is 880.58 mGy-cm. Automated exposure control was utilized for the study. A dose lowering technique was utilized adhering to the principles of ALARA. MIP reconstructed images were created and reviewed. CONTRAST: Patient received 115 ml optiray 320 of IV contrast COMPARISON: None. FINDINGS: Right internal carotid artery: Minimal atherosclerotic disease involving the cavernous portion of the right internal carotid artery with no stenosis. No aneurysm. Right anterior cerebral artery: Unremarkable. No occlusion or significant stenosis. No aneurysm. Right middle cerebral artery: Unremarkable. No occlusion or significant stenosis. No aneurysm. Right posterior cerebral artery: Unremarkable. No occlusion or significant stenosis. No aneurysm. Right vertebral artery: Unremarkable as visualized. Left internal carotid artery: Minimal atherosclerotic disease involving the cavernous portion of the left internal carotid artery with no stenosis. No aneurysm. Left anterior cerebral artery: Unremarkable. No occlusion or significant stenosis. No aneurysm. Left middle cerebral artery: Unremarkable. No occlusion or significant stenosis. No aneurysm. Left posterior cerebral artery: Unremarkable. No occlusion or significant stenosis. No aneurysm. Left vertebral artery: Unremarkable as visualized. Basilar artery: Unremarkable. No occlusion or significant stenosis. No aneurysm. IMPRESSION: Negative CT angiogram of the brain with no focal stenosis, occlusion or aneurysm seen. Communications: Call Doctor Stroke Electronically signed by: Chelsey Felix MD 06/24/23 21:28 PM Neck CTA 06/24/23 20:41 CR Exam(s): CTA NECK With Contrast IV Amt: 115 ml optiray 320 EXAM: CT Angiography Neck With Intravenous Contrast CLINICAL HISTORY: Reason for exam: neuro deficit, acute stroke suspected. TECHNIQUE: Routine carotid CT angiography protocol was performed with intravenous contrast. NASCET criteria using the distal ICAs for comparison were used for evaluation of stenoses. CTDI is 25.68 mGy and DLP is 880.58 mGy-cm. Automated exposure control was utilized for the study. A dose lowering technique was utilized adhering to the principles of ALARA. MIP reconstructed images were created and reviewed. CONTRAST: Patient received 115 ml optiray 320 of IV contrast COMPARISON: None. FINDINGS: VASCULATURE: Right common carotid artery: Unremarkable. No occlusion or significant stenosis. No dissection. Right internal carotid artery: Unremarkable. Extracranial segment is patent with no occlusion or significant stenosis. No dissection. Right external carotid artery: Unremarkable. No occlusion. Right vertebral artery: Unremarkable. No occlusion or significant stenosis. No dissection. Left common carotid artery: Unremarkable. No occlusion or significant stenosis. No dissection. Left internal carotid artery: Unremarkable. Extracranial segment is patent with no occlusion or significant stenosis. No dissection. Left external carotid artery: Unremarkable. No occlusion. Left vertebral artery: Unremarkable. No occlusion or significant stenosis. No dissection. NECK: Bones/joints: Unremarkable. No acute fracture. Soft tissues: Unremarkable. Lung apices: Right apical nodule measuring 12 mm. CAROTID STENOSIS REFERENCE USING NASCET CRITERIA: % ICA stenosis = (1 - narrowest ICA diameter/diameter of distal cervical ICA) x 100. Mild - <50% stenosis. Moderate - 50-69% stenosis. Severe - 70-94% stenosis. Near occlusion - 95-99% stenosis. Occluded - 100% stenosis. IMPRESSION: 1. Negative CT angiogram of the neck with no focal stenosis, occlusion or dissection involving the bilateral carotid and vertebral arteries. 2. Right upper lobe nodule measuring 12 mm, recommend follow-up with CT chest for further characterization. Communications: Call Doctor Stroke Electronically signed by: Chelsey Felix MD 06/24/23 21:26 PM Discharge Plan Visit Data Chief Complaint: Neuro Symptoms/Deficit Stated Complaint: L AND R LEG NUMBNESS, ED Provider: Manoj Montano Discharge Problem: Right leg weakness, Dysmetria, Stroke-like symptoms Patient Disposition: Being Evaluated by Hospitalist Forms Stand Alone Forms: My [facility] Prescriptions Prescriptions: No Action omeprazole 20 mg capsule,delayed release(DR/EC) 20 mg PO DAILY gabapentin 100 mg capsule 100 mg PO HS fluticasone propionate 50 mcg/actuation spray,suspension 2 spray INTRANASAL QAM Referrals Referrals: Ricky Perdue MD [Primary Care Provider] -
[2023-06-24 21:03] LABS: Basophils # (auto) 0.07 K/uL (0.00-0.20); Basophils % (auto) 1.1 %; Eosinophils # (auto) 0.28 K/uL (0.00-0.50); Eosinophils % (auto) 4.2 %; Hematocrit (blood only) 45.1 % (42.0-52.0); Hemoglobin 15.6 g/dl (14.0-18.0); Immature Granulocytes # (auto) 0.02 K/uL (0.01-0.20); Immature Granulocytes % (auto) 0.3 %; Lymphocytes # (auto) 1.65 K/uL (1.20-3.40); Mean Corpuscular Hemoglobin 31.9 pg (25.0-34.0); Mean Corpuscular Hgb Conc 34.6 g/dL (32.0-36.0); Mean Corpuscular Volume 92.2 fL (80.0-100.0); Mean Platelet Volume 12.1 fL (9.4-12.4); Monocytes # (auto) 0.73 K/uL (0.11-0.59); Neutrophils # (auto) 3.86 K/uL (1.40-6.50); Neutrophils % (auto) 58.4 %; Platelet Count 202 K/uL (130-400); RDW Coefficient of Variation 12.7 % (11.5-14.5); Red Blood Count 4.89 M/uL (4.70-6.10); White Blood Count 6.61 K/ul (4.8-10.8)
--- NOTE | 2023-06-24 21:20 | CT Scan Report ---
Exam(s): CT HEAD Without Contrast EXAM: CT Head Without Intravenous Contrast CLINICAL HISTORY: Reason for exam: neuro deficit, acute stroke suspected. TECHNIQUE: Axial computed tomography images of the head/brain without intravenous contrast. CTDI is 36.43 mGy and DLP is 546.36 mGy-cm. Automated exposure control was utilized for the study. A dose lowering technique was utilized adhering to the principles of ALARA. COMPARISON: None. FINDINGS: Brain: Mild generalized brain atrophy. No hemorrhage. No significant white matter disease. Ventricles: Unremarkable. No ventriculomegaly. Bones/joints: Unremarkable. No acute fracture. Soft tissues: Unremarkable. Sinuses: Small mucus with denser cyst versus polyp within the right maxillary sinus measuring 7 mm. Remainder of the paranasal sinuses are clear. Mastoid air cells: Unremarkable as visualized. Normal bilateral mastoid air cells. IMPRESSION: Involutional changes otherwise normal CT brain for age. Communications: Call Doctor Stroke Electronically signed by: Chelsey Felix MD 06/24/23 21:19 PM
[2023-06-24] MEDS ORDERED: STAT IV/IM STA (21:21)
[2023-06-24] MEDS ORDERED: SODIUM CHLORIDE 0.9% 10ML FLUSH IV STA (21:21)
--- NOTE | 2023-06-24 21:26 | CT Scan Report ---
Exam(s): CTA NECK With Contrast IV Amt: 115 ml optiray 320 EXAM: CT Angiography Neck With Intravenous Contrast CLINICAL HISTORY: Reason for exam: neuro deficit, acute stroke suspected. TECHNIQUE: Routine carotid CT angiography protocol was performed with intravenous contrast. NASCET criteria using the distal ICAs for comparison were used for evaluation of stenoses. CTDI is 25.68 mGy and DLP is 880.58 mGy-cm. Automated exposure control was utilized for the study. A dose lowering technique was utilized adhering to the principles of ALARA. MIP reconstructed images were created and reviewed. CONTRAST: Patient received 115 ml optiray 320 of IV contrast COMPARISON: None. FINDINGS: VASCULATURE: Right common carotid artery: Unremarkable. No occlusion or significant stenosis. No dissection. Right internal carotid artery: Unremarkable. Extracranial segment is patent with no occlusion or significant stenosis. No dissection. Right external carotid artery: Unremarkable. No occlusion. Right vertebral artery: Unremarkable. No occlusion or significant stenosis. No dissection. Left common carotid artery: Unremarkable. No occlusion or significant stenosis. No dissection. Left internal carotid artery: Unremarkable. Extracranial segment is patent with no occlusion or significant stenosis. No dissection. Left external carotid artery: Unremarkable. No occlusion. Left vertebral artery: Unremarkable. No occlusion or significant stenosis. No dissection. NECK: Bones/joints: Unremarkable. No acute fracture. Soft tissues: Unremarkable. Lung apices: Right apical nodule measuring 12 mm. CAROTID STENOSIS REFERENCE USING NASCET CRITERIA: % ICA stenosis = (1 - narrowest ICA diameter/diameter of distal cervical ICA) x 100. Mild - <50% stenosis. Moderate - 50-69% stenosis. Severe - 70-94% stenosis. Near occlusion - 95-99% stenosis. Occluded - 100% stenosis. IMPRESSION: 1. Negative CT angiogram of the neck with no focal stenosis, occlusion or dissection involving the bilateral carotid and vertebral arteries. 2. Right upper lobe nodule measuring 12 mm, recommend follow-up with CT chest for further characterization. Communications: Call Doctor Stroke Electronically signed by: Chelsey Felix MD 06/24/23 21:26 PM
--- NOTE | 2023-06-24 21:29 | CT Scan Report ---
Exam(s): CTA HEAD With Contrast IV Amt: 115 ml optiray 320 EXAM: CT Angiography Head With Intravenous Contrast CLINICAL HISTORY: Reason for exam: neuro deficit, acute stroke suspected. TECHNIQUE: Axial computed tomographic angiography images of the head with intravenous contrast. CTDI is 25.68 mGy and DLP is 880.58 mGy-cm. Automated exposure control was utilized for the study. A dose lowering technique was utilized adhering to the principles of ALARA. MIP reconstructed images were created and reviewed. CONTRAST: Patient received 115 ml optiray 320 of IV contrast COMPARISON: None. FINDINGS: Right internal carotid artery: Minimal atherosclerotic disease involving the cavernous portion of the right internal carotid artery with no stenosis. No aneurysm. Right anterior cerebral artery: Unremarkable. No occlusion or significant stenosis. No aneurysm. Right middle cerebral artery: Unremarkable. No occlusion or significant stenosis. No aneurysm. Right posterior cerebral artery: Unremarkable. No occlusion or significant stenosis. No aneurysm. Right vertebral artery: Unremarkable as visualized. Left internal carotid artery: Minimal atherosclerotic disease involving the cavernous portion of the left internal carotid artery with no stenosis. No aneurysm. Left anterior cerebral artery: Unremarkable. No occlusion or significant stenosis. No aneurysm. Left middle cerebral artery: Unremarkable. No occlusion or significant stenosis. No aneurysm. Left posterior cerebral artery: Unremarkable. No occlusion or significant stenosis. No aneurysm. Left vertebral artery: Unremarkable as visualized. Basilar artery: Unremarkable. No occlusion or significant stenosis. No aneurysm. IMPRESSION: Negative CT angiogram of the brain with no focal stenosis, occlusion or aneurysm seen. Communications: Call Doctor Stroke Electronically signed by: Chelsey Felix MD 06/24/23 21:28 PM
[2023-06-24] MEDS ORDERED: No Aspirin within 24hrs of THROMBOLYTIC-Stroke PO SCH (21:30)
[2023-06-24] MEDS ORDERED: TENECTEPLASE 25 MG in SYRINGE 0 ML IV ONE (21:31)
[2023-06-24 21:41] LABS: Alanine Aminotransferase 19 U/L (7-52); Albumin Globulin Ratio 1.3 (0.9-2); Albumin Level 4.1 gm/dl (3.4-5.0); Alkaline Phosphatase 92 U/L (34-104); Anion Gap 7 (3-11); BUN Creatinine Ratio 10.2 (10-20); Bilirubin,Total 0.3 mg/dl (0.2-1.0); Blood Urea Nitrogen 17 mg/dl (6-23); Calcium 9.2 mg/dl (8.6-10.3); Carbon Dioxide 23 mmol/L (21-32); Chloride 107 mmol/L (98-107); Creatinine Clr Calc Pharmacy 60.7 ml/min; Est GFR (African American) 52.2 ml/min; Est GFR (Non-African American) 45.1 ml/min; Globulin 3.1 gm/dl (2.5-4.0); Glucose 153 mg/dl (70-99(Fasting)); Sodium 137 mmol/L (136-145); Total Protein 7.2 gm/dl (6.0-8.3); Troponin I High Sensitivity 3.1 pg/ml (0-20)
[2023-06-24] MEDS ORDERED: SODIUM CHLORIDE 0.9% 500 ML IV ONE (22:00)
[2023-06-24] MEDS ORDERED: MAGNESIUM SULFATE / D5W 1 GM/100 ML BAG IV STA (22:01)
[2023-06-24 22:14] LABS: Partial Thromboplastin Time 28.5 Seconds (21.0-31.0); Prothrombin Time 10.8 Seconds (9.0-12.0)
[2023-06-24 22:43] LABS: Potassium 4.3 mmol/L (3.5-5.1)
--- NOTE | 2023-06-24 22:52 | CT Scan Report ---
Exam(s): CTA CHEST W/WO Contrast IV Amt: 115 ml optiray 320 EXAM: CT Angiography Chest Without and With Intravenous Contrast CLINICAL HISTORY: Reason for exam: leg weakness. TECHNIQUE: Axial computed tomographic angiography images of the chest without and with intravenous contrast. CTDI is 18.18 mGy and DLP is 1105.24 mGy-cm. Automated exposure control was utilized for the study. A dose lowering technique was utilized adhering to the principles of ALARA. MIP reconstructed images were created and reviewed. CONTRAST: Patient received 115 ml optiray 320 of IV contrast COMPARISON: None. FINDINGS: Pulmonary arteries: Unremarkable. No pulmonary embolism. Aorta: No acute findings. No thoracic aortic aneurysm. Lungs: Right upper lobe nodule measuring 11 mm. Trace posterior dependent atelectasis. The remainder of the lung parenchyma is clear. Pleural space: Unremarkable. No significant effusion. No pneumothorax. Heart: Unremarkable. No cardiomegaly. No significant pericardial effusion. No evidence of RV dysfunction. Normal cardiac size with mild coronary artery calcifications. Bones/joints: No acute fracture. No dislocation. Soft tissues: There is mild lateral hernia with fluid within the distal esophagus consistent with reflux. Lymph nodes: Unremarkable. No enlarged lymph nodes. IMPRESSION: 1. No pulmonary embolus or aortic dissection. 2. Right upper lobe nodule measuring 11 mm, recommend follow-up CT chest at 6 months interval to evaluate stability or evaluation with PET scan to determine and to benign versus malignant. 3. Minimal posterior dependent atelectasis, otherwise no acute cardio pulmonary disease. Electronically signed by: Chelsey Felix MD 06/24/23 22:52 PM
--- NOTE | 2023-06-25 00:27 | History & Physical Report ---
Date of Service June 25, 2023 Assessment & Plan (1) Stroke-like symptoms: Plan: 58-year-old male with past med significant for prediabetes, obstructive sleep apnea, GERD, Boucher's esophagus without dysplasia, periodic limb movement disorder, obesity presents with right leg weakness started around 8 PM. Strokelike symptoms Right leg weakness S/p TNK Right leg weakness improved Monitor in ICU Will follow the post 24 hours s/p TNK protocol No aspirin or anticoagulation for 24hrs Will do full stroke workup with MRI scan, echo, PT OT, speech evaluation N.p.o. for now, IV fluids Neuroconsult in a.m. Follow-up 24 CT scan post TNK Obstructive sleep apnea CPAP nightly Prediabetes Follow HbA1c levels Boucher's esophagus Omeprazole Lung nodule Needs follow-up DVT prophylaxis SCDs Disposition ICU Level 1 full code History of Present Illness Chief Complaint: Strokelike symptoms Primary Care Provider: Ricky Perdue MD 58-year-old male with past med significant for prediabetes, obstructive sleep apnea, GERD, Boucher's esophagus without dysplasia, periodic limb movement disorder, obesity presents with right leg weakness started around 8 PM. Patient states around 8 PM he noticed his right leg was rubbery feeling and came to ER and stroke alert was called. Initial workup was unremarkable. After telestroke discussed with the patient about TNK and after going back and forth finally patient decided okay for TNK. Patient is currently s/p TNK. Currently right leg is back to normal. Patient states when he was going to CAT scan he had some blurred visions but that resolved now. Before TNK had some mild headache but that resolved now. Denies any chest pain or shortness of breath. No fevers. No cough. No nausea. No blood in the stools or black stools. Currently resting comfortably and hemodynamically stable. Past medical history. As mentioned above Past surgical history. Colonoscopy. EGD. Social history. . No smoking. Alcohol 2 beers a month. No drug use. Family history. Father had Alzheimer's disease. Kidney stones. Mother had arthritis. Blood clot. Hypertension. Maternal grandmother had breast cancer. Allergies Allergy/AdvReac Type Severity Reaction Status Date / Time codeine AdvReac Nausea Verified 06/24/23 22:00 Home Medications Medication Instructions Recorded Confirmed Type fluticasone propionate 50 2 spray intranasal QAM 06/24/23 06/24/23 History mcg/actuation nasal spray,suspension gabapentin 100 mg capsule 100 mg PO HS 06/24/23 06/24/23 History omeprazole 20 mg capsule,delayed 20 mg PO DAILY 06/24/23 06/24/23 History release Past Med/Surg History Medical History (Updated 06/25/23 @ 01:12 by MITCHELL Wasserman) Periodic limb movement JAIR (obstructive sleep apnea) GERD (gastroesophageal reflux disease) Family History (Updated 06/25/23 @ 01:38 by MITCHELL Wasserman) Grandmother Cancer breast cancer Mother Pulmonary embolism Other Hypertension Social History Smoking Status: Never smoker Hx Alcohol Use: Yes Alcohol type: beer Hx Substance Use: No Preferred Language: Telugu Communication Ability: Effective Motor Equipment Captain Required: No Beliefs That Will Affect Care: None Current Living Situation: Spouse Other Information That Helps Us Care for You: No Feels Safe at Home: Yes Safety Concerns: Feels Safe At This Time Assistive Devices: Glasses Review of Systems Review of Systems: All systems reviewed & are unremarkable except as noted in HPI & below Physical Exam Physical Exam: General- Not in distress Head- atraumatic Eyes- PERRL, EOMI. ENT- oropharynx clear Neck- supple, no JVD. Lungs- clear to auscultation no wheezing or crackles. Heart- regular rhythm; no murmur, no gallop. Abdomen- normal bowel sounds, soft, nontender, no distension. Extremities- no pretibial edema, no erythema seen. Neuro- alert, oriented x 3; PERRL, EOMI; no facial palsy; no dysarthria; motor 5/5 bilaterally;CAn raise lower extremity and hold for few seconds, co ordination of movements normal. Finger nose test normal.No pronator drift, sensations intact. Skin- warm & dry Results & Data Results & Data Vital Signs (Past 12 Hours) Vital Signs Temp Pulse Pulse Resp BP BP Pulse Ox 06/24/23 23:45 60 16 124/91 94 06/24/23 23:30 36.7 C 66 16 146/87 H 94 06/24/23 23:15 64 18 130/90 96 06/24/23 23:00 64 18 144/87 H 93 06/24/23 22:45 36.7 C 66 16 137/95 94 06/24/23 22:30 36.8 C 67 16 148/91 H 95 06/24/23 22:15 66 16 150/93 H 93 06/24/23 22:00 72 16 149/93 H 94 06/24/23 21:45 36.9 C 68 16 151/102 H 93 06/24/23 21:45 65 18 153/97 H 97 06/24/23 21:30 73 18 156/91 H 94 06/24/23 21:10 71 18 148/91 H 95 06/24/23 21:09 71 06/24/23 20:31 36.7 C 73 17 153/89 H 96 O2 Del Method 06/24/23 23:45 Room Air 06/24/23 23:30 Room Air 06/24/23 23:15 Room Air 06/24/23 23:00 Room Air 06/24/23 22:45 Room Air 06/24/23 22:30 Room Air 06/24/23 22:15 Room Air 06/24/23 22:00 Room Air 06/24/23 21:45 Room Air 06/24/23 21:45 Room Air 06/24/23 21:30 06/24/23 21:10 Room Air 06/24/23 21:09 06/24/23 20:31 Room Air Diagnostic Findings Laboratory Results WBC 6.61 K/ul (4.8-10.8) 06/24/23 20:46 RBC 4.89 M/uL (4.70-6.10) 06/24/23 20:46 Hgb 15.6 g/dl (14.0-18.0) 06/24/23 20:46 Hct 45.1 % (42.0-52.0) 06/24/23 20:46 MCV 92.2 fL (80.0-100.0) 06/24/23 20:46 MCH 31.9 pg (25.0-34.0) 06/24/23 20:46 MCHC 34.6 g/dL (32.0-36.0) 06/24/23 20:46 RDW Std Deviation 43.0 fL (36.4-46.3) 06/24/23 20:46 RDW Coeff of Antonette 12.7 % (11.5-14.5) 06/24/23 20:46 Plt Count 202 K/uL (130-400) 06/24/23 20:46 MPV 12.1 fL (9.4-12.4) 06/24/23 20:46 Immature Gran % (Auto) 0.3 % 06/24/23 20:46 Neut % (Auto) 58.4 % 06/24/23 20:46 Lymph % (Auto) 25.0 % 06/24/23 20:46 [place] % (Auto) 11.0 % 06/24/23 20:46 Eos % (Auto) 4.2 % 06/24/23 20:46 Baso % (Auto) 1.1 % 06/24/23 20:46 Neut # (Auto) 3.86 K/uL (1.40-6.50) 06/24/23 20:46 Lymph # (Auto) 1.65 K/uL (1.20-3.40) 06/24/23 20:46 [place] # (Auto) 0.73 K/uL (0.11-0.59) H 06/24/23 20:46 Eos # (Auto) 0.28 K/uL (0.00-0.50) 06/24/23 20:46 Baso # (Auto) 0.07 K/uL (0.00-0.20) 06/24/23 20:46 Immature Gran # (Auto) 0.02 K/uL (0.01-0.20) 06/24/23 20:46 PT 10.8 Seconds (9.0-12.0) 06/24/23 20:46 INR 1.0 (0.9-1.1) 06/24/23 20:46 APTT 28.5 Seconds (21.0-31.0) 06/24/23 20:46 PTT Ratio 1.0 06/24/23 20:46 Sodium 137 mmol/L (136-145) 06/24/23 20:46 Potassium 4.3 mmol/L (3.5-5.1) 06/24/23 22:05 Chloride 107 mmol/L (98-107) 06/24/23 20:46 Carbon Dioxide 23 mmol/L (21-32) 06/24/23 20:46 Anion Gap 7 (3-11) 06/24/23 20:46 BUN 17 mg/dl (6-23) 06/24/23 20:46 Creatinine 1.66 mg/dl (0.6-1.4) H 06/24/23 20:46 Est Cr Clr Drug Dosing 60.7 ml/min 06/24/23 20:46 Est GFR ( Amer) 52.2 ml/min 06/24/23 20:46 Est GFR (Non-Af Amer) 45.1 ml/min 06/24/23 20:46 BUN/Creatinine Ratio 10.2 (10-20) 06/24/23 20:46 Glucose 153 mg/dl (70-99(Fasting)) H 06/24/23 20:46 Calcium 9.2 mg/dl (8.6-10.3) 06/24/23 20:46 Magnesium 2.0 mg/dl (1.7-2.4) 06/24/23 22:05 Total Bilirubin 0.3 mg/dl (0.2-1.0) 06/24/23 20:46 AST 17 U/L (13-39) 06/24/23 22:05 ALT 19 U/L (7-52) 06/24/23 20:46 Alkaline Phosphatase 92 U/L (34-104) 06/24/23 20:46 Troponin I High Sens 3.1 pg/ml (0-20) 06/24/23 20:46 Total Protein 7.2 gm/dl (6.0-8.3) 06/24/23 20:46 Albumin 4.1 gm/dl (3.4-5.0) 06/24/23 20:46 Globulin 3.1 gm/dl (2.5-4.0) 06/24/23 20:46 Albumin/Globulin Ratio 1.3 (0.9-2) 06/24/23 20:46 Impressions Chest CTA 06/24/23 20:41 Exam(s): CTA CHEST W/WO Contrast IV Amt: 115 ml optiray 320 EXAM: CT Angiography Chest Without and With Intravenous Contrast CLINICAL HISTORY: Reason for exam: leg weakness. TECHNIQUE: Axial computed tomographic angiography images of the chest without and with intravenous contrast. CTDI is 18.18 mGy and DLP is 1105.24 mGy-cm. Automated exposure control was utilized for the study. A dose lowering technique was utilized adhering to the principles of ALARA. MIP reconstructed images were created and reviewed. CONTRAST: Patient received 115 ml optiray 320 of IV contrast COMPARISON: None. FINDINGS: Pulmonary arteries: Unremarkable. No pulmonary embolism. Aorta: No acute findings. No thoracic aortic aneurysm. Lungs: Right upper lobe nodule measuring 11 mm. Trace posterior dependent atelectasis. The remainder of the lung parenchyma is clear. Pleural space: Unremarkable. No significant effusion. No pneumothorax. Heart: Unremarkable. No cardiomegaly. No significant pericardial effusion. No evidence of RV dysfunction. Normal cardiac size with mild coronary artery calcifications. Bones/joints: No acute fracture. No dislocation. Soft tissues: There is mild lateral hernia with fluid within the distal esophagus consistent with reflux. Lymph nodes: Unremarkable. No enlarged lymph nodes. IMPRESSION: 1. No pulmonary embolus or aortic dissection. 2. Right upper lobe nodule measuring 11 mm, recommend follow-up CT chest at 6 months interval to evaluate stability or evaluation with PET scan to determine and to benign versus malignant. 3. Minimal posterior dependent atelectasis, otherwise no acute cardio pulmonary disease. Electronically signed by: Chelsey Felix MD 06/24/23 22:[address] 06/24/23 20:41 CR Exam(s): CT HEAD Without Contrast EXAM: CT Head Without Intravenous Contrast CLINICAL HISTORY: Reason for exam: neuro deficit, acute stroke suspected. TECHNIQUE: Axial computed tomography images of the head/brain without intravenous contrast. CTDI is 36.43 mGy and DLP is 546.36 mGy-cm. Automated exposure control was utilized for the study. A dose lowering technique was utilized adhering to the principles of ALARA. COMPARISON: None. FINDINGS: Brain: Mild generalized brain atrophy. No hemorrhage. No significant white matter disease. Ventricles: Unremarkable. No ventriculomegaly. Bones/joints: Unremarkable. No acute fracture. Soft tissues: Unremarkable. Sinuses: Small mucus with denser cyst versus polyp within the right maxillary sinus measuring 7 mm. Remainder of the paranasal sinuses are clear. Mastoid air cells: Unremarkable as visualized. Normal bilateral mastoid air cells. IMPRESSION: Involutional changes otherwise normal CT brain for age. Communications: Call Doctor Stroke Electronically signed by: Chelsey Felix MD 06/24/23 21:19 PM Head CTA 06/24/23 20:41 CR Exam(s): CTA HEAD With Contrast IV Amt: 115 ml optiray 320 EXAM: CT Angiography Head With Intravenous Contrast CLINICAL HISTORY: Reason for exam: neuro deficit, acute stroke suspected. TECHNIQUE: Axial computed tomographic angiography images of the head with intravenous contrast. CTDI is 25.68 mGy and DLP is 880.58 mGy-cm. Automated exposure control was utilized for the study. A dose lowering technique was utilized adhering to the principles of ALARA. MIP reconstructed images were created and reviewed. CONTRAST: Patient received 115 ml optiray 320 of IV contrast COMPARISON: None. FINDINGS: Right internal carotid artery: Minimal atherosclerotic disease involving the cavernous portion of the right internal carotid artery with no stenosis. No aneurysm. Right anterior cerebral artery: Unremarkable. No occlusion or significant stenosis. No aneurysm. Right middle cerebral artery: Unremarkable. No occlusion or significant stenosis. No aneurysm. Right posterior cerebral artery: Unremarkable. No occlusion or significant stenosis. No aneurysm. Right vertebral artery: Unremarkable as visualized. Left internal carotid artery: Minimal atherosclerotic disease involving the cavernous portion of the left internal carotid artery with no stenosis. No aneurysm. Left anterior cerebral artery: Unremarkable. No occlusion or significant stenosis. No aneurysm. Left middle cerebral artery: Unremarkable. No occlusion or significant stenosis. No aneurysm. Left posterior cerebral artery: Unremarkable. No occlusion or significant stenosis. No aneurysm. Left vertebral artery: Unremarkable as visualized. Basilar artery: Unremarkable. No occlusion or significant stenosis. No aneurysm. IMPRESSION: Negative CT angiogram of the brain with no focal stenosis, occlusion or aneurysm seen. Communications: Call Doctor Stroke Electronically signed by: Chelsey Felix MD 06/24/23 21:28 PM Neck CTA 06/24/23 20:41 CR Exam(s): CTA NECK With Contrast IV Amt: 115 ml optiray 320 EXAM: CT Angiography Neck With Intravenous Contrast CLINICAL HISTORY: Reason for exam: neuro deficit, acute stroke suspected. TECHNIQUE: Routine carotid CT angiography protocol was performed with intravenous contrast. NASCET criteria using the distal ICAs for comparison were used for evaluation of stenoses. CTDI is 25.68 mGy and DLP is 880.58 mGy-cm. Automated exposure control was utilized for the study. A dose lowering technique was utilized adhering to the principles of ALARA. MIP reconstructed images were created and reviewed. CONTRAST: Patient received 115 ml optiray 320 of IV contrast COMPARISON: None. FINDINGS: VASCULATURE: Right common carotid artery: Unremarkable. No occlusion or significant stenosis. No dissection. Right internal carotid artery: Unremarkable. Extracranial segment is patent with no occlusion or significant stenosis. No dissection. Right external carotid artery: Unremarkable. No occlusion. Right vertebral artery: Unremarkable. No occlusion or significant stenosis. No dissection. Left common carotid artery: Unremarkable. No occlusion or significant stenosis. No dissection. Left internal carotid artery: Unremarkable. Extracranial segment is patent with no occlusion or significant stenosis. No dissection. Left external carotid artery: Unremarkable. No occlusion. Left vertebral artery: Unremarkable. No occlusion or significant stenosis. No dissection. NECK: Bones/joints: Unremarkable. No acute fracture. Soft tissues: Unremarkable. Lung apices: Right apical nodule measuring 12 mm. CAROTID STENOSIS REFERENCE USING NASCET CRITERIA: % ICA stenosis = (1 - narrowest ICA diameter/diameter of distal cervical ICA) x 100. Mild - <50% stenosis. Moderate - 50-69% stenosis. Severe - 70-94% stenosis. Near occlusion - 95-99% stenosis. Occluded - 100% stenosis. IMPRESSION: 1. Negative CT angiogram of the neck with no focal stenosis, occlusion or dissection involving the bilateral carotid and vertebral arteries. 2. Right upper lobe nodule measuring 12 mm, recommend follow-up with CT chest for further characterization. Communications: Call Doctor Stroke Electronically signed by: Chelsey Felix MD 06/24/23 21:26 PM ECG Additional Comments: EEG. Sinus rhythm with fusion complexes a rate of 66. Right bundle branch block.
--- NOTE | 2023-06-25 00:53 | Critical Care Consultation ---
Date of Consultation June 25, 2023 Assessment & Plan (1) Stroke-like symptoms: (2) Abnormal chest CT: (3) JAIR (obstructive sleep apnea): (4) GERD (gastroesophageal reflux disease): Plan Reason Critically Ill: 58 YOM with onset of right leg weakness associated with ataxia of right leg, as well as right upper extremity and blurred vision on arrival. Received Thrombolytics for Stroke like symptoms at 2131. To ICU for continued stroke workup and monitoring post Thrombolytics administration. Neuro - Stroke like symptoms, s/p administration of TNK, HX of periodic limb movement while sleeping CAM ICU: Negative - Stroke evalution- NIHSS currently 1 - ICU for 24 hours post TNK administration - Neurological exams per protocol - MRI- pending - CTA head and neck negative - PT/OT consultation - Defer neurological consultation to primary service - ECHO in AM - Telemetry 24 hours - consider extended outpatient monitoring for atrial dysrhythmia if appropriate - Statin medication to be initiated - Hold all other antiplatelet medications at this time s/p TNK - CPAP therapy at home and patient endorses compliance Cardiac - Elevated blood pressure without diagnosis of HTN - BP goals following TNK administration - Labetalol as needed - Hydralazine of bradycardia - Cardene infusion if needed - Lipid panel in morning- initiate statin - ASA when appropriate - ECHO with bubble study in am Respiratory - JAIR, Abnormal CT scan of chest - CPAP AutoPap while inpatient - No compliance data available - Incidental finding of 12mm RIGHT UPPER LOBE nodule - Life long non-smoker - Lived around the [place] during the partial meltdown - CT chest dedicated within next 3 months recommended GI - GERD - Continue PPI - Has had EGD and Colonoscopy done (2019) RENAL/LYTES - No acute issues - Follow daily BMP - Replete electrolytes as needed - No acute issues ENDO - No acute issues - HGBa1C in morning- therapy as indicated HEME - No acute issues ID - No concern for infectious etiology at this time LINES/IV ACCESS - PIV Continue use of these lines DVT PROPHYLAXIS - SCDS, Chemoprophylaxis contraindicated in the setting of recent thromblytic administration for 24 hours DISPO: ICU 24 hours post thrombolytic administration. I have personally spent 45 minutes of critical care time in the direct management of this patient. This is a life/limb threatening event. This includes time spent evaluating patient, direct bedside care, chart review, placing orders, interpretation of diagnostic studies, discussion with consultants, patient, and family members, as well as other required patient management activities. This time is exclusive of all separately billable procedures, and teaching time and separate from and in addition to any other critical care service time. Thank you for allowing us to participate in the care of this patient. Please refer to my attending physician's documentation for any further recommendations. Supervising Physician Co-Signing Physician Notes Patient seen and examined. EMR reviewed. Discussed with critical care VERNON and agree with assessment plan as noted. The patient is status post systemic thrombolytics for stroke. This was confirmed on MRI of the brain. Neurology consultation pending. Blood pressure is acceptable. Will need PT OT evaluations once 24 hours out from systemic thrombolysis. Echo with bubble pending. Results will determine long-term anticoagulation/antiplatelet plan. He does have a pulmonary nodule in the right upper lobe. There appears to be some decreased density consistent with fat which may make this consistent with a hamartoma. Discussed with radiology. Recommend follow-up CT scan in 6 months. I would be happy to see him back in the pulmonary clinic with follow-up of his CT in 6 months. Will plan on follow-up CT scan 24 hours post tPA administration if this is normal he can transfer to the floor out of the ICU and critical care services will sign off. History of Present Illness Reason for Consultation: Stroke like symptoms s/p TNK administration Requesting Physician: Curt Kelley MD Attending Physician: Curt Kelley MD History of Present Illness 58 YOM with medical history of: GERD, JAIR with periodic limb movement with sleep. Patient was brought to the EMD today by family for concerns of stroke like symptoms. Patient reports that around 1999 on 06/24/23 he sneezed a normal sneeze and following this he had an onset of headache and right leg weakness and uncoordination with right leg. He reports that his "leg felt like jelly and could not quite control it well". Also endorses feeling as if he was "drunk or in a fog" earlier. He is accompanied by his and daughter. They endorse that he was speaking well at home and had no other weakness but did note that when he was putting on his right shoe, he was having trouble coordinating the leg and getting his shoe on. Patient endorses no aphasia or difficulty speaking or understanding speech. He also denies any difficulty reading words on the way to and into the EMD. He did endorse however, once in the EMD he did start to have some blurred vision. He was stroke alerted in the EMD and initial NIHSS was reported as 3. He underwent CT head, CTA of the head and neck, which was interpreted as no acute occlusions or aneurysms, bleed or large CVA. He underwent tele-neurological consultation with [facility] and was deemed a candidate for thrombolytics. Patient received TNK at 2131. Patient will be admitted to the ICU for monitoring post TNK administration, await MRI, telemetry monitoring for 24 hours and frequent neurological exams. CODE: FULL Allergies Allergy/AdvReac Type Severity Reaction Status Date / Time codeine AdvReac Nausea Verified 06/24/23 22:00 Home Medications Medication Instructions Recorded Confirmed Type fluticasone propionate 50 2 spray intranasal QAM 06/24/23 06/24/23 History mcg/actuation nasal spray,suspension gabapentin 100 mg capsule 100 mg PO HS 06/24/23 06/24/23 History omeprazole 20 mg capsule,delayed 20 mg PO DAILY 06/24/23 06/24/23 History release Patient History Medical History (Updated 06/25/23 @ 01:12 by MITCHELL Wasserman) Periodic limb movement JAIR (obstructive sleep apnea) GERD (gastroesophageal reflux disease) Family History (Updated 06/25/23 @ 01:38 by MITCHELL Wasserman) Grandmother Cancer breast cancer Mother Pulmonary embolism Other Hypertension Social History Smoking Status: Never smoker Hx Alcohol Use: Yes Alcohol type: beer Hx Substance Use: No Preferred Language: Greenlandic Communication Ability: Effective Hr Payroll Coordinator Required: No Beliefs That Will Affect Care: None Current Living Situation: Spouse Other Information That Helps Us Care for You: No Feels Safe at Home: Yes Safety Concerns: Feels Safe At This Time Assistive Devices: Glasses Review of Systems Review of Systems: REVIEW OF SYSTEMS: Constitutional: No fever, sweats or chills Eyes: (+) blurred vision both eyes- resolved, wears glasses, No diplopia, ENT: normal hearing, no trouble swallowing Respiratory: No cough, sputum, dyspnea at rest or on exertion Cardiovascular: No chest pain, tightness or palpitations Abdomen: No pain, nausea, vomiting, diarrhea or constipation Musculoskeletal: (+) weakness and coordination issue with right lower leg, No joint pain, calf pain, swelling Neurologic: No weakness, numbness/tingling, or balance problems Psychiatric: No anxiety or depression Skin: No rash or itch Physical Exam Physical Exam: PHYSICAL EXAM: General: awake, alert, no apparent distress Head: Normocephalic, atraumatic ENT: PERRLA, EOMI, no pharyngeal exudate, mucous membranes moist Neuro: AAO x 3, speech clear and appropriate, strength intact bilaterally 5/5, sensation intact and equal all extremities and dermatomes, no pronator drift, mild ataxia or right lower leg, no overshoot with finger to nose. NIHSS- 1 Chest: equal rise and fall of the chest, no accessory muscle use, no heaves or thrills, Clear to auscultation, on room air, Cardiac: Regular rate and rhythm, telemetry reviewed, skin warm dry, cap refill <3 seconds, peripheral pulses +2 no JVD, no murmur, no edema GI: NABS x 4 quadrants, soft, nontender to palpation, no rebound, guarding or tenderness : Spontaneously voiding, no pain, no CVA tenderness, Extremities: Normal inspection, no peripheral edema or erythema, calfs nontender to palpation Psych: Normal mood and affect Skin: no rash or erythema Results & Data Results & Data Vital Signs (Past 12 Hours) Vital Signs Temp Pulse Pulse Resp BP BP Pulse Ox 06/25/23 00:15 65 16 156/88 H 94 06/24/23 23:45 60 16 124/91 94 06/24/23 23:30 36.7 C 66 16 146/87 H 94 06/24/23 23:15 64 18 130/90 96 06/24/23 23:00 64 18 144/87 H 93 06/24/23 22:45 36.7 C 66 16 137/95 94 06/24/23 22:30 36.8 C 67 16 148/91 H 95 06/24/23 22:15 66 16 150/93 H 93 06/24/23 22:00 72 16 149/93 H 94 06/24/23 21:45 36.9 C 68 16 151/102 H 93 06/24/23 21:45 65 18 153/97 H 97 06/24/23 21:30 73 18 156/91 H 94 06/24/23 21:10 71 18 148/91 H 95 06/24/23 21:09 71 06/24/23 20:31 36.7 C 73 17 153/89 H 96 O2 Del Method 06/25/23 00:15 Room Air 06/24/23 23:45 Room Air 06/24/23 23:30 Room Air 06/24/23 23:15 Room Air 06/24/23 23:00 Room Air 06/24/23 22:45 Room Air 06/24/23 22:30 Room Air 06/24/23 22:15 Room Air 06/24/23 22:00 Room Air 06/24/23 21:45 Room Air 06/24/23 21:45 Room Air 06/24/23 21:30 06/24/23 21:10 Room Air 06/24/23 21:09 06/24/23 20:31 Room Air Laboratory Results Abnormal lab results 06/24/23 Range/Units 20:46 [place] # (Auto) 0.73 H (0.11-0.59) K/uL Creatinine 1.66 H (0.6-1.4) mg/dl Glucose 153 H (70-99(Fasting)) mg/dl Diagnostic Findings Chest CTA 06/24/23 20:41 Exam(s): CTA CHEST W/WO Contrast IV Amt: 115 ml optiray 320 EXAM: CT Angiography Chest Without and With Intravenous Contrast CLINICAL HISTORY: Reason for exam: leg weakness. TECHNIQUE: Axial computed tomographic angiography images of the chest without and with intravenous contrast. CTDI is 18.18 mGy and DLP is 1105.24 mGy-cm. Automated exposure control was utilized for the study. A dose lowering technique was utilized adhering to the principles of ALARA. MIP reconstructed images were created and reviewed. CONTRAST: Patient received 115 ml optiray 320 of IV contrast COMPARISON: None. FINDINGS: Pulmonary arteries: Unremarkable. No pulmonary embolism. Aorta: No acute findings. No thoracic aortic aneurysm. Lungs: Right upper lobe nodule measuring 11 mm. Trace posterior dependent atelectasis. The remainder of the lung parenchyma is clear. Pleural space: Unremarkable. No significant effusion. No pneumothorax. Heart: Unremarkable. No cardiomegaly. No significant pericardial effusion. No evidence of RV dysfunction. Normal cardiac size with mild coronary artery calcifications. Bones/joints: No acute fracture. No dislocation. Soft tissues: There is mild lateral hernia with fluid within the distal esophagus consistent with reflux. Lymph nodes: Unremarkable. No enlarged lymph nodes. IMPRESSION: 1. No pulmonary embolus or aortic dissection. 2. Right upper lobe nodule measuring 11 mm, recommend follow-up CT chest at 6 months interval to evaluate stability or evaluation with PET scan to determine and to benign versus malignant. 3. Minimal posterior dependent atelectasis, otherwise no acute cardio pulmonary disease. Electronically signed by: Chelsey Felix MD 06/24/23 22:[address] 06/24/23 20:41 CR Exam(s): CT HEAD Without Contrast EXAM: CT Head Without Intravenous Contrast CLINICAL HISTORY: Reason for exam: neuro deficit, acute stroke suspected. TECHNIQUE: Axial computed tomography images of the head/brain without intravenous contrast. CTDI is 36.43 mGy and DLP is 546.36 mGy-cm. Automated exposure control was utilized for the study. A dose lowering technique was utilized adhering to the principles of ALARA. COMPARISON: None. FINDINGS: Brain: Mild generalized brain atrophy. No hemorrhage. No significant white matter disease. Ventricles: Unremarkable. No ventriculomegaly. Bones/joints: Unremarkable. No acute fracture. Soft tissues: Unremarkable. Sinuses: Small mucus with denser cyst versus polyp within the right maxillary sinus measuring 7 mm. Remainder of the paranasal sinuses are clear. Mastoid air cells: Unremarkable as visualized. Normal bilateral mastoid air cells. IMPRESSION: Involutional changes otherwise normal CT brain for age. Communications: Call Doctor Stroke Electronically signed by: Chelsey Felix MD 06/24/23 21:19 PM Head CTA 06/24/23 20:41 CR Exam(s): CTA HEAD With Contrast IV Amt: 115 ml optiray 320 EXAM: CT Angiography Head With Intravenous Contrast CLINICAL HISTORY: Reason for exam: neuro deficit, acute stroke suspected. TECHNIQUE: Axial computed tomographic angiography images of the head with intravenous contrast. CTDI is 25.68 mGy and DLP is 880.58 mGy-cm. Automated exposure control was utilized for the study. A dose lowering technique was utilized adhering to the principles of ALARA. MIP reconstructed images were created and reviewed. CONTRAST: Patient received 115 ml optiray 320 of IV contrast COMPARISON: None. FINDINGS: Right internal carotid artery: Minimal atherosclerotic disease involving the cavernous portion of the right internal carotid artery with no stenosis. No aneurysm. Right anterior cerebral artery: Unremarkable. No occlusion or significant stenosis. No aneurysm. Right middle cerebral artery: Unremarkable. No occlusion or significant stenosis. No aneurysm. Right posterior cerebral artery: Unremarkable. No occlusion or significant stenosis. No aneurysm. Right vertebral artery: Unremarkable as visualized. Left internal carotid artery: Minimal atherosclerotic disease involving the cavernous portion of the left internal carotid artery with no stenosis. No aneurysm. Left anterior cerebral artery: Unremarkable. No occlusion or significant stenosis. No aneurysm. Left middle cerebral artery: Unremarkable. No occlusion or significant stenosis. No aneurysm. Left posterior cerebral artery: Unremarkable. No occlusion or significant stenosis. No aneurysm. Left vertebral artery: Unremarkable as visualized. Basilar artery: Unremarkable. No occlusion or significant stenosis. No aneurysm. IMPRESSION: Negative CT angiogram of the brain with no focal stenosis, occlusion or aneurysm seen. Communications: Call Doctor Stroke Electronically signed by: Chelsey Felix MD 06/24/23 21:28 PM Neck CTA 06/24/23 20:41 CR Exam(s): CTA NECK With Contrast IV Amt: 115 ml optiray 320 EXAM: CT Angiography Neck With Intravenous Contrast CLINICAL HISTORY: Reason for exam: neuro deficit, acute stroke suspected. TECHNIQUE: Routine carotid CT angiography protocol was performed with intravenous contrast. NASCET criteria using the distal ICAs for comparison were used for evaluation of stenoses. CTDI is 25.68 mGy and DLP is 880.58 mGy-cm. Automated exposure control was utilized for the study. A dose lowering technique was utilized adhering to the principles of ALARA. MIP reconstructed images were created and reviewed. CONTRAST: Patient received 115 ml optiray 320 of IV contrast COMPARISON: None. FINDINGS: VASCULATURE: Right common carotid artery: Unremarkable. No occlusion or significant stenosis. No dissection. Right internal carotid artery: Unremarkable. Extracranial segment is patent with no occlusion or significant stenosis. No dissection. Right external carotid artery: Unremarkable. No occlusion. Right vertebral artery: Unremarkable. No occlusion or significant stenosis. No dissection. Left common carotid artery: Unremarkable. No occlusion or significant stenosis. No dissection. Left internal carotid artery: Unremarkable. Extracranial segment is patent with no occlusion or significant stenosis. No dissection. Left external carotid artery: Unremarkable. No occlusion. Left vertebral artery: Unremarkable. No occlusion or significant stenosis. No dissection. NECK: Bones/joints: Unremarkable. No acute fracture. Soft tissues: Unremarkable. Lung apices: Right apical nodule measuring 12 mm. CAROTID STENOSIS REFERENCE USING NASCET CRITERIA: % ICA stenosis = (1 - narrowest ICA diameter/diameter of distal cervical ICA) x 100. Mild - <50% stenosis. Moderate - 50-69% stenosis. Severe - 70-94% stenosis. Near occlusion - 95-99% stenosis. Occluded - 100% stenosis. IMPRESSION: 1. Negative CT angiogram of the neck with no focal stenosis, occlusion or dissection involving the bilateral carotid and vertebral arteries. 2. Right upper lobe nodule measuring 12 mm, recommend follow-up with CT chest for further characterization. Communications: Call Doctor Stroke Electronically signed by: Chelsey Felix MD 06/24/23 21:26 PM Medications Administered Home Medications fluticasone propionate 50 mcg/actuation nasal spray,suspension 2 spray intranasal QAM 06/24/23 [History Confirmed 06/24/23] gabapentin 100 mg capsule 100 mg PO HS 06/24/23 [History Confirmed 06/24/23] omeprazole 20 mg capsule,delayed release 20 mg PO DAILY 06/24/23 [History Confirmed 06/24/23] Active Medications Aspirin (No Aspirin Within 24hrs Of Thrombolytic-Stroke) 1 each PO UD MARLINE Stop: 06/25/23 21:29 Fluticasone Propionate (Fluticasone Propionate Na Spr 16 Gm Btl) 2 sprays NA QAM MARLINE Stop: 07/25/23 08:59 Gabapentin (Gabapentin 100 Mg Cap) 100 mg PO HS MARLINE Stop: 07/25/23 20:59 Sodium Chloride (Nss) 1,000 mls @ 100 mls/hr IV .Q10H MARLINE Stop: 06/25/23 21:07 Miscellaneous (Icu Protocol For Hyperglycemia) 1 each N/A ACHS MARLINE Stop: 06/27/23 07:29 Miscellaneous Information (Pharmacist Discharge Med Rec Consult) 1 each N/A UD PRN PRN Reason: Consult Stop: 07/25/23 01:07 Non-Formulary Medication (Omeprazole) 20 mg PO DAILY MARLINE Stop: 07/25/23 08:59 Discontinued Medications Tenecteplase 25 mg/ Syringe 5 mls @ 60 mls/min IV NOW ONE; Protocol Stop: 06/24/23 21:32 Last Admin: 06/24/23 21:44 Dose: 60 mls/min Documented By: ALBERTO Co-signed By: KRISTY Sodium Chloride (Nss) 500 mls @ 999 mls/hr IV .Q31M ONE Stop: 06/24/23 22:30 Last Infusion: 06/24/23 22:39 Dose: Infused Documented By: Admin: 06/24/23 22:08 Dose: 999 mls/hr Documented By: ALBERTO Magnesium Sulfate/Dextrose (Magnesium Sulfate / D5w) 1 gm in 100 mls @ 100 mls/hr IV NOW STA Stop: 06/24/23 23:00 Last Infusion: 06/24/23 23:08 Dose: Infused Documented By: Admin: 06/24/23 22:08 Dose: 100 mls/hr Documented By: ALBERTO Ioversol (Optiray 320 125ml) 115 ml IV ONCE ONE Stop: 06/24/23 20:52 Last Admin: 06/24/23 20:51 Dose: 115 ml Documented By: PEE Miscellaneous (Stat Iv/Im) 1 each N/A NOW STA Stop: 06/24/23 21:22 Last Admin: 06/24/23 22:08 Dose: Not Given Documented By: ALBERTO Sodium Chloride (Sodium Chloride 0.9% 10ml Flush) 20 ml IV NOW STA Stop: 06/24/23 21:22 Last Admin: 06/24/23 21:45 Dose: 20 ml Documented By: ALBERTO ECG Additional Comments: Sinus rhythm with Fusion complexes Right bundle branch block Abnormal ECG No previous ECGs available Coding Level of Care Code 87553 CRITICAL CARE 1ST 30-74M Diagnoses Stroke-like symptoms R29.[address] R93.89 JAIR (obstructive sleep apnea) G47.33 GERD (gastroesophageal reflux disease) K21.9
[2023-06-25] MEDS ORDERED: PHARMACIST DISCHARGE MED REC CONSULT PRN (01:08)
[2023-06-25] MEDS ORDERED: SODIUM CHLORIDE 0.9% 1,000 ML IV SCH (01:08)
[2023-06-25] MEDS ORDERED: GADOBUTROL 10ML VIAL IV ONE (02:28)
--- NOTE | 2023-06-25 04:28 | Magnetic Resonance Report ---
Exam(s): MRI HEAD W/WO Contrast EXAM: MR Head Without and With Intravenous Contrast CLINICAL HISTORY: Reason for exam: acute cva. TECHNIQUE: Magnetic resonance images of the head/brain without and with intravenous contrast in multiple planes. CONTRAST: Contrast must be dictated COMPARISON: CT brain dated 06/24/2023. FINDINGS: Brain: There is a minimal focus of restricted diffusion within the left centrum semiovale measuring 4.7 mm mass compatible with small acute lacunar infarct. No hemorrhage. Ventricles: Unremarkable. No ventriculomegaly. Bones/joints: Unremarkable. No acute fracture. Soft tissues: Unremarkable. Normal enhancement of intracranial structures following contrast administration. Sinuses: Unremarkable as visualized. No acute sinusitis. Mastoid air cells: Unremarkable as visualized. No mastoid effusion. Orbits: Unremarkable as visualized. IMPRESSION: 1. Small acute lacunar infarct involving the posterior aspect of the left centrum semiovale. 2. Otherwise normal MRI of the brain with no enhancing intracranial region. No intracranial hemorrhage. Communications: Call Doctor Other Electronically signed by: Chelsey Felix MD 06/25/23 04:27 AM
[2023-06-25 04:46] LABS: Basophils # (auto) 0.06 K/uL (0.00-0.20); Eosinophils # (auto) 0.21 K/uL (0.00-0.50); Eosinophils % (auto) 3.5 %; Hematocrit (blood only) 45.3 % (42.0-52.0); Hemoglobin 15.2 g/dl (14.0-18.0); Immature Granulocytes # (auto) 0.02 K/uL (0.01-0.20); Immature Granulocytes % (auto) 0.3 %; Lymphocytes # (auto) 1.41 K/uL (1.20-3.40); Lymphocytes % (auto) 23.7 %; Mean Corpuscular Hemoglobin 31.5 pg (25.0-34.0); Mean Corpuscular Hgb Conc 33.6 g/dL (32.0-36.0); Mean Platelet Volume 11.9 fL (9.4-12.4); Monocytes # (auto) 0.73 K/uL (0.11-0.59); Monocytes % (auto) 12.2 %; Neutrophils # (auto) 3.53 K/uL (1.40-6.50); Neutrophils % (auto) 59.3 %; Platelet Count 186 K/uL (130-400); RDW Coefficient of Variation 12.7 % (11.5-14.5); RDW Standard Deviation 43.9 fL (36.4-46.3); Red Blood Count 4.82 M/uL (4.70-6.10); White Blood Count 5.96 K/ul (4.8-10.8)
[2023-06-25 04:59] LABS: Magnesium 2.2 mg/dl (1.7-2.4); Phosphorus 3.4 mg/dl (2.5-4.9)
--- NOTE | 2023-06-25 06:45 | XRay Report ---
SINGLE VIEW CHEST CLINICAL HISTORY: Neurological deficit. Stroke like symptoms FINDINGS: An AP, portable, upright chest radiograph is compared to study dated 01/26/2013 and correlat ed with chest CT dated 06/24/2023. The cardiomediastinal silhouette is unremarkable. There is mild bi basilar scarring/atelectasis. The lungs and pleural spaces are otherwise clear. No pneumothorax is se en. The bony thorax is grossly intact. IMPRESSION: 1. No active disease in the chest. 2. The right upper lobe pulmonary nodule seen on today's CT scan is not visualized on x-ray. ACT 112: Negative or not required by law. Electronically signed by: Adam Maurer M.D. 06/25/2023 6:44 AM
[2023-06-25 07:37] LABS: Estimated Average Glucose 126 mg/dl
[2023-06-25] MEDS: ATORVASTATIN 40 MG TAB PO SCH (07:37)
[2023-06-25] MEDS: FLUTICASONE PROPIONATE NA SPR 16 GM BTL SCH (07:37)
[2023-06-25] MEDS: PANTOprazole 40 MG TAB PO SCH (07:37)
[2023-06-25] MEDS: ICU Protocol for HYPERglycemia SCH ×4 (09:03→20:53)
--- NOTE | 2023-06-25 12:45 | Neurology Consultation ---
Date of Consultation June 25, 2023 Assessment & Plan (1) Lacunar stroke: Patient presents with R sided weakness/clumsiness, now resolved s/p TNK. The patient has multiple small vessel risk factors now identified including HLD, HTN, pre-diabetes and the known sleep apnea. Recommend aggressive risk factor mo dification. Agree with aspirin 81mg daily, lipitor 40mg daily and diet control for his pre-diabetes. -- Aspirin 81mg daily -- Lipitor 40mg daily -- Continue CPAP for sleep apnea -- Would start an antihypertensive now -- Therapy evals for dispo, suspect he can go home without further therapy -- Neurology follow-up in 4-6 weeks -- Please contact us with further questions. Telehealth Consultation Telehealth Information Telehealth Information: I performed this visit using a real-time telehealth connection between my location and the patients location ([facility]). After connecting through interactive tele-video, patient was identified by name and date of and/or wristband check.Patient (or authorized healthcare food service representative) was informed that this was a telemedicine visit and it was being conducted confidentially over secure lines. My office door was closed and no one else was present in the room with me.Patient (or authorized healthcare food service representative) provided consent to proceed with the visit, expressed an understanding of privacy and security of the telemedicine visit, and gave permission to have a hospital food service representative in the room in order to assist with the visit and to conduct portions of the visit, as needed. I informed the patient (or authorized healthcare food service representative) that I reviewed their record and presented the opportunity for them to ask any questions regarding the visit today. The patient agreed to participate. History of Present Illness Reason for Consultation: Stroke Requesting Physician: Dr. Kan Attending Physician: Wilma Kan MD History of Present Illness Javan Lopez is a 58 yo M presenting with R sided clumsiness and weakness yesterday with witnessed onset by his family. He received TNK on arrival and reports almost immediate improvement in his symptoms. He feels back to normal today but has not been out of bed. He has never had a stroke before and was not on any antiplatelet or anticoagulant. He has known sleep apnea and has been compliant with his CPAP. 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 Allergies Allergy/AdvReac Type Severity Reaction Status Date / Time codeine AdvReac Nausea Verified 06/24/23 22:00 Home Medications Medication Instructions Recorded Confirmed Type fluticasone propionate 50 2 spray intranasal QAM 06/24/23 06/24/23 History mcg/actuation nasal spray,suspension gabapentin 100 mg capsule 100 mg PO HS 06/24/23 06/24/23 History omeprazole 20 mg capsule,delayed 20 mg PO DAILY 06/24/23 06/24/23 History release Patient History Medical History (Updated 06/25/23 @ 13:01 by Ricky Moreau MD) Periodic limb movement JAIR (obstructive sleep apnea) GERD (gastroesophageal reflux disease) Family History (Updated 06/25/23 @ 01:38 by MITCHELL Wasserman) Grandmother Cancer breast cancer Mother Pulmonary embolism Other Hypertension Social History Smoking Status: Never smoker Hx Alcohol Use: Yes Alcohol type: beer Hx Substance Use: No Preferred Language: Stateless Communication Ability: Effective Hand Lens Polisher Required: No Beliefs That Will Affect Care: None Current Living Situation: Spouse Other Information That Helps Us Care for You: No Feels Safe at Home: Yes Safety Concerns: Feels Safe At This Time Assistive Devices: None Review of Systems +R sided weakness, resolved Physical Exam Neurological Examination: Mental Status: Awake and alert. Oriented to person, place, and time. Fluent. Comprehension intact. Affect appropriate. Cranial Nerves: II: pupils 3/3 to 2/2 III/IV/: Versions intact without nystagmus, no gaze preference. V: Facial sensation symmetric to light touch VII: Facial expression symmetric VIII: Hearing intact to voice Motor: Strength was symmetric and antigravity throughout. Pronator drift was absent. There were no abnormal movements. Coordination: Finger to nose and heel to ruelas were intact. Reflexes: Unable to assess over telemedicine Results & Data Vital Signs (Past 12 Hours) Vital Signs Temp Pulse Pulse Resp BP Pulse Ox Pulse Ox 06/25/23 11:45 64 14 139/93 96 06/25/23 11:15 60 06/25/23 10:45 81 14 157/89 H 94 06/25/23 09:45 65 12 142/99 H 95 06/25/23 08:45 55 L 12 160/90 H 93 06/25/23 07:55 60 06/25/23 07:45 64 12 149/96 H 96 06/25/23 06:45 36.7 C 63 20 148/93 H 95 06/25/23 05:45 36.7 C 53 L 20 149/84 H 95 06/25/23 05:15 36.6 C 50 L 18 138/99 95 06/25/23 04:45 36.7 C 55 L 20 145/98 H 95 06/25/23 04:15 36.7 C 62 20 138/92 97 06/25/23 03:45 36.8 C 59 L 20 141/90 H 94 06/25/23 03:18 60 18 97 06/25/23 03:15 36.7 C 57 L 20 137/100 95 06/25/23 03:00 36.6 C 59 L 22 140/96 96 06/25/23 02:15 36.7 C 62 20 157/101 H 96 06/25/23 01:45 36.7 C 59 L 20 139/94 96 06/25/23 01:15 36.7 C 60 20 152/94 H 95 06/25/23 01:08 57 L 06/25/23 01:08 95 06/25/23 01:08 36.7 C 60 22 153/97 H 99 06/25/23 00:45 60 18 136/88 94 O2 Del Method FiO2 06/25/23 11:45 Room Air 06/25/23 11:15 06/25/23 10:45 Room Air 06/25/23 09:45 Room Air 06/25/23 08:45 Room Air 06/25/23 07:55 06/25/23 07:45 Room Air 06/25/23 06:45 Room Air 06/25/23 05:45 Room Air 06/25/23 05:15 Room Air 06/25/23 04:45 Room Air 06/25/23 04:15 Room Air 06/25/23 03:45 Room Air 06/25/23 03:18 21 06/25/23 03:15 Room Air 06/25/23 03:00 Room Air 06/25/23 02:15 Room Air 06/25/23 01:45 Room Air 06/25/23 01:15 Room Air 06/25/23 01:08 06/25/23 01:08 06/25/23 01:08 Room Air 06/25/23 00:45 Room Air Laboratory Results Abnormal lab results 06/24/23 06/25/23 06/25/23 Range/Units 20:46 01:28 04:13 [place] # (Auto) 0.73 H 0.73 H (0.11-0.59) K/uL Creatinine 1.66 H (0.6-1.4) mg/dl Glucose 153 H (70-99(Fasting)) mg/dl POC Glucose 114 H (70-99) mg/dl Hemoglobin A1c 6.0 H (4.5-5.6) % Cholesterol 202 H (0-200) mg/dl 06/25/23 Range/Units 12:53 [place] # (Auto) (0.11-0.59) K/uL Creatinine (0.6-1.4) mg/dl Glucose (70-99(Fasting)) mg/dl POC Glucose 114 H (70-99) mg/dl Hemoglobin A1c (4.5-5.6) % Cholesterol (0-200) mg/dl Diagnostic Findings MRI brain - small lacunar L BG infarct
--- NOTE | 2023-06-25 13:11 | Electrocardiogram Report ---
Test Reason : Blood Pressure : / mmHG Vent. Rate : 066 BPM Atrial Rate : 066 BPM P-R Int : 178 ms QRS Dur : 138 ms QT Int : 414 ms P-R-T Axes : 037 002 000 degrees QTc Int : 434 ms Sinus rhythm Right bundle branch block Abnormal ECG No previous ECGs available Confirmed by Manoj Brown ([id number]) on 06/25/2023 1:10:54 PM Referred By: REFERRED SELF Confirmed By:Manoj Brown
--- NOTE | 2023-06-25 17:11 | Communication Note ---
Date of Service: June 25, 2023 Mr Lopez is a 58 year old gentleman with history of prediabetes, LULY, GERD/Barretts, who is admitted for concerns of RLE weakness and found to have experienced a stroke. His admission as also revealed HTN, HLD. Neurology following for lacunar stroke--continue Lipitor 40mg daily, [id number]. Follow up with Neuro in 4 -6 weeks. ECHO with [facility]--starting lisinopril 5mg in am. 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
[2023-06-25] MEDS ORDERED: GABAPENTIN 100 MG CAP PO SCH (21:00)
--- NOTE | 2023-06-25 22:46 | Ultrasound Report ---
ULTRASOUND BILATERAL LOWER EXTREMITY VENOUS CLINICAL HISTORY: Stroke. Patent foramen ovale. Clinical concern for deep venous thrombosis. COMPARISON STUDY: No priors. TECHNIQUE: Real-time, grayscale, and color Doppler sonography of the deep veins of the right and left lower extremity was performed from the inguinal crease to the calf. Compression and augmentation wer e utilized. FINDINGS: There is no sonographic evidence of deep venous thrombosis identified in the right or left lower extremity. The common femoral, superficial femoral, and popliteal veins are patent and normally compressible bilaterally. The greater saphenous vein and the profunda femoris vein at the junction w ith the common femoral vein are clear in both legs. The visualized calf veins are patent bilaterally. IMPRESSION: There is no sonographic evidence of deep venous thrombosis identified in the right or lef t lower extremity. ACT 112: Negative or not required by law. Electronically signed by: Adam Maurer M.D. 06/25/2023 10:43 PM
--- NOTE | 2023-06-25 22:53 | CT Scan Report ---
CT SCAN OF THE BRAIN WITHOUT IV CONTRAST CLINICAL HISTORY: Stroke status post thrombolysis. COMPARISON STUDY: CT of the brain dated 06/24/2023. MRI of the brain dated 06/25/2023. TECHNIQUE: Unenhanced axial CT scan of the brain is performed from the vertex to the skull base. A d ose lowering technique was utilized adhering to the principles of ALARA. CT DOSE: 703.85 mGy.cm FINDINGS: Brain parenchyma: There is an indeterminate punctate hyperdense focus identified in the left centrum semiovale on image #23 which was not clearly seen previously. A tiny focus of hemorrhage is not exclu ded. No additional foci are suspicious for acute hemorrhage. There is no mass effect or evidence of a cute territorial ischemia by CT criteria. [place]-white matter differentiation is preserved. No extra-ax ial fluid collection is seen. Ventricles, sulci, cisterns: Normal in configuration. Intracranial vasculature: There is atherosclerotic calcification of the cavernous carotid and vertebr al arteries. Calvarium: Unremarkable. Sinuses and mastoids: There is trace mucosal thickening within the maxillary antra. The remaining vis ualized paranasal sinuses are clear. The mastoid air cells are well pneumatized. Orbits: The bony orbits are grossly intact. IMPRESSION: 1. There is a punctate hyperdense focus in the left centrum semiovale at the site of the tiny lacunar infarct seen by MRI. This is indeterminant and was not clearly seen previously. A punctate foci of h emorrhage is not excluded. Attention at follow-up is recommend. 2. No additional findings are suspicious for acute hemorrhage. There is no mass effect or evidence of acute territorial ischemia by CT criteria. 3. The tiny lacunar infarct in the left centrum semiovale seen by MRI is not visualized by CT. ACT 112: Negative or not required by law. Electronically signed by: Adam Maurer M.D. 06/25/2023 10:51 PM
[2023-06-26 04:21] LABS: Basophils # (auto) 0.06 K/uL (0.00-0.20); Basophils % (auto) 0.8 %; Eosinophils # (auto) 0.26 K/uL (0.00-0.50); Eosinophils % (auto) 3.5 %; Hematocrit (blood only) 47.2 % (42.0-52.0); Hemoglobin 16.1 g/dl (14.0-18.0); Immature Granulocytes # (auto) 0.03 K/uL (0.01-0.20); Immature Granulocytes % (auto) 0.4 %; Lymphocytes # (auto) 1.44 K/uL (1.20-3.40); Lymphocytes % (auto) 19.6 %; Mean Corpuscular Hemoglobin 31.3 pg (25.0-34.0); Mean Corpuscular Hgb Conc 34.1 g/dL (32.0-36.0); Mean Corpuscular Volume 91.7 fL (80.0-100.0); Mean Platelet Volume 11.7 fL (9.4-12.4); Monocytes # (auto) 0.76 K/uL (0.11-0.59); Monocytes % (auto) 10.4 %; Neutrophils # (auto) 4.79 K/uL (1.40-6.50); Neutrophils % (auto) 65.3 %; Platelet Count 202 K/uL (130-400); RDW Coefficient of Variation 12.9 % (11.5-14.5); RDW Standard Deviation 43.8 fL (36.4-46.3); Red Blood Count 5.15 M/uL (4.70-6.10); White Blood Count 7.34 K/ul (4.8-10.8)
[2023-06-26 04:22] LABS: BUN Creatinine Ratio 13.5 (10-20); Creatinine Clr Calc Pharmacy 74.4 ml/min; Est GFR (African American) 68.3 ml/min; Est GFR (Non-African American) 58.9 ml/min; Magnesium 2.2 mg/dl (1.7-2.4); Potassium 4.3 mmol/L (3.5-5.1)
[2023-06-26] MEDS: FLUTICASONE PROPIONATE NA SPR 16 GM BTL SCH (07:15)
[2023-06-26] MEDS: ATORVASTATIN 40 MG TAB PO SCH (07:15)
[2023-06-26] MEDS: PANTOprazole 40 MG TAB PO SCH (07:15)
--- NOTE | 2023-06-26 08:19 | Cardiology Consultation ---
Date of Consultation June 26, 2023 Assessment & Plan (1) Lacunar stroke: (2) PFO (patent foramen ovale): (3) HTN (hypertension): (4) Dyslipidemia, goal LDL below 70: Plan 58-year-old male admitted with acute CVA status post TNK in ER. Repeat CT with possible punctate foci of hemorrhage in the area of lacunar CVA noted on MRI. Antiplatelet therapy currently on hold. He is scheduled for repeat CT this a.m. I had a long discussion with the patient and his regarding the natural history and pathophysiology of patent foramen ovale. R.O.P.E. score = 5, indicating a 34% probability that PFO is clinically significant. Low risk PFO per Shelby classification. Recommend addition of single antiplatelet therapy if no contraindication after review of repeat CT. Continue statin and SHANAE inhibitor. Outpatient 14-day ZIO monitor. Thank you for allow me to participate in the care of your patient. History of Present Illness Reason for Consultation: PFO, with CVA Requesting Physician: Chandler MEDRANO Attending Physician: Wilma Kan MD History of Present Illness 58-year-old male presents to the emergency department 06/25/2023 due to right leg weakness. Stroke alert was called. After telestroke evaluation patient received TNK. Right leg weakness subsequently resolved. Transient blurred vision also noted. Hypertensive on admission with evidence of left ventricular hypertrophy per echocardiogram. Echo also demonstrated a small patent foramen ovale without evidence of atrial septal aneurysm. There is a small right to left shunt. MRI reporting a small, acute lacunar infarct involving the posterior aspect of the left centrum semiovale. Patient feeling better today. Has not received antiplatelet therapy due to a possible punctate foci of hemorrhage on CT. Repeat CT planned this a.m. Right lower extremity weakness improved, however, states "does not feel quite right" ". Denies slurred speech, visual changes, paresthesias, or dysphagia. Works full-time in maintenance. Generally able to come pleat strenuous activity without exertional chest pain, or unusual shortness of breath. Denies palpitations, however, has reported sensation of "heart racing" during panic attacks. Denies history of hypertension or dyslipidemia prior to admission. Blood pressure improved with addition of low-dose lisinopril. Tolerating statin therapy. Allergies Allergy/AdvReac Type Severity Reaction Status Date / Time codeine AdvReac Nausea Verified 06/24/23 22:00 Home Medications Medication Instructions Recorded Confirmed Type fluticasone propionate 50 2 spray intranasal QAM 06/24/23 06/24/23 History mcg/actuation nasal spray,suspension gabapentin 100 mg capsule 100 mg PO HS 06/24/23 06/24/23 History omeprazole 20 mg capsule,delayed 20 mg PO DAILY 06/24/23 06/24/23 History release aspirin 81 mg capsule 81 mg PO DAILY #30 caps 06/26/23 Rx atorvastatin 40 mg tablet 40 mg PO QAM #30 tabs 06/26/23 Rx lisinopril 5 mg tablet (Zestril) 5 mg PO QAM 30 days #30 tabs 06/26/23 Rx Patient History Medical History Periodic limb movement JAIR (obstructive sleep apnea) GERD (gastroesophageal reflux disease) Family History Grandmother Cancer breast cancer Mother Pulmonary embolism Other Hypertension Social History Smoking Status: Never smoker Hx Alcohol Use: Yes Alcohol type: beer Hx Substance Use: No Preferred Language: Tajik Communication Ability: Effective Broach Grinder Required: No Beliefs That Will Affect Care: None Current Living Situation: Spouse Feels Safe at Home: Yes Assistive Devices: None Review of Systems Review of Systems: All systems reviewed & are unremarkable except as noted in Subjective Physical Exam Constitutional: well nourished; no acute distress and not ill appearing Respiratory: normal respiratory effort; no respiratory distress Auscultation: no crackles, no rales, no rhonchi and no wheezes Cardiovascular: Rate/Rhythm: regular rate and regular rhythm Heart Sounds: normal S1 and normal S2; no murmur Gastrointestinal (Abdomen): Inspection/Auscultation: normal bowel sounds; abdomen not distended Percussion/Palpation: abdomen soft; abdomen nontender, no guarding and abdomen not rigid Neurologic: CN's II-XI intact bilaterally and moves all extremities Psychiatric: A+Ox3, euthymic affect Results & Data Vital Signs (Past 12 Hours) Vital Signs Temp Pulse Pulse Resp BP BP Pulse Ox 11/25/23 06:00 72 16 133/81 94 06/26/23 05:00 54 L 17 93 06/26/23 04:00 52 L 17 93 06/26/23 04:00 138/88 06/26/23 03:31 51 L 13 93 06/26/23 03:31 145/85 H 06/26/23 03:00 61 18 92 06/26/23 02:00 51 L 16 94 06/26/23 01:08 06/26/23 01:00 58 L 16 92 06/26/23 00:00 62 18 91 06/25/23 23:00 55 L 16 93 06/25/23 22:00 69 14 95 06/25/23 21:45 36.9 C 64 18 140/95 95 06/25/23 21:37 140/95 06/25/23 21:37 62 15 94 06/25/23 21:00 59 L 13 93 06/25/23 21:00 158/96 H 06/25/23 20:47 145/104 H 06/25/23 20:47 68 17 94 06/25/23 20:45 36.9 C 63 18 158/96 H 99 Pulse Ox O2 Del Method O2 Del Method 06/26/23 06:00 06/26/23 05:00 06/26/23 04:00 06/26/23 04:00 06/26/23 03:31 06/26/23 03:31 06/26/23 03:00 06/26/23 02:00 06/26/23 01:08 95 Room Air 06/26/23 01:00 06/26/23 00:00 06/25/23 23:00 06/25/23 22:00 06/25/23 21:45 Room Air 06/25/23 21:37 06/25/23 21:37 06/25/23 21:00 06/25/23 21:00 06/25/23 20:47 06/25/23 20:47 06/25/23 20:45 Room Air Laboratory Results CBC 06/26/23 Range/Units 03:42 WBC 7.34 (4.8-10.8) K/ul RBC 5.15 (4.70-6.10) M/uL Hgb 16.1 (14.0-18.0) g/dl Hct 47.2 (42.0-52.0) % Plt Count 202 (130-400) K/uL Neut # (Auto) 4.79 (1.40-6.50) K/uL Lymph # (Auto) 1.44 (1.20-3.40) K/uL [place] # (Auto) 0.76 H (0.11-0.59) K/uL Eos # (Auto) 0.26 (0.00-0.50) K/uL Baso # (Auto) 0.06 (0.00-0.20) K/uL Comprehensive Metabolic Panel 06/26/23 Range/Units 03:42 Sodium 138 (136-145) mmol/L Potassium 4.3 (3.5-5.1) mmol/L Chloride 107 (98-107) mmol/L Carbon Dioxide 26 (21-32) mmol/L BUN 18 (6-23) mg/dl Creatinine 1.33 D (0.6-1.4) mg/dl Glucose 108 H (70-99(Fasting)) mg/dl Calcium 9.0 (8.6-10.3) mg/dl Intake and Output 06/25/23 06/26/23 06/26/23 22:59 06:59 14:59 Intake Total 1080 / 2105 260 / 2105 Output Total 0 / 0 Balance 1080 / 2105 260 / 2105 Intake: Oral 1080 / 1340 260 / 1340 Output: Urine 0 / 0 Other: # Unmeasured Voids 850 1 Weight 99.3 kg Diagnostic Findings MRI brain report 06/21/2023: 1. Small acute lacunar infarct involving the posterior aspect of the left centrum semiovale. 2. Otherwise normal MRI of the brain with no enhancing intracranial region. No intracranial hemorrhage. 2D echocardiogram (images personally reviewed): LVEF 55-60% Mild LVH No significant valvular pathology. Small right to left interatrial shunt consistent with small PFO. No interatrial septal aneurysm. ECG Additional Comments: ECG: Sinus rhythm with a right bundle branch block. (3) HTN (hypertension) Hypertension type: primary hypertension Qualified Code(s): I10 - Essential (primary) hypertension
[2023-06-26] MEDS: ICU Protocol for HYPERglycemia SCH (08:22)
[2023-06-26] MEDS ORDERED: lisinopril 5 MG TAB PO SCH (09:00)
--- NOTE | 2023-06-26 10:17 | CT Scan Report ---
HEAD CT NONCONTRAST CT DOSE: 547.75 mGy.cm HISTORY: Abnormal head CT. Follow-up. punctate hyperdense focus left centrum semiovale TECHNIQUE: Multiaxial CT images of the head were performed without the use of intravenous contrast. A utomated exposure control was utilized for this study. A dose lowering technique was utilized adheri ng to the principles of ALARA. Comparison: Head CT 06/25/2023. Findings: The paranasal sinuses and mastoid air cells are clear. The calvarium and skull base are int act. The ventricles and sulci are within normal limits. There is no mass, hematoma, or midline shift. The patient's known punctate infarct within the left high convexity is not well visualized by this m odality. The questionable punctate hyperdense focus within the left high convexity on the prior study is no longer present. Impression: 1. The patient's known small acute infarct within the left high convexity is not well visualized by t his modality. 2. No intracranial hemorrhage identified. ACT 112: Negative or not required by law. Electronically signed by: Baldemar Bauer M.D. 06/26/2023 10:15 AM
--- NOTE | 2023-06-26 10:36 | Critical Care Progress Note ---
Date of Service June 26, 2023 Assessment & Plan (1) Stroke-like symptoms: (2) Abnormal chest CT: (3) JAIR (obstructive sleep apnea): (4) GERD (gastroesophageal reflux disease): Plan Impression: 58-year-old male with acute stroke status post TNK administration. 24-hour follow-up CT scan demonstrated a questionable area of hemorrhage but this was not confirmed on repeat CT scan and the patient is doing well clinically. Recommendations: 1. Acute stroke: Status post TNK administration. Per neurology will start aspirin 81 mg daily. Blood pressure control. PT OT evaluations. 2. Cardiology follow-up for PFO. The patient's critical care issues have resolved at this point in time. He can be transferred out of the ICU. Critical care services will sign off. Feel free to contact us with new or progressive critical care issues Admission and Anticipated Discharge Date Admission Date: June 25, 2023 Subjective Patient seen and examined. EMR reviewed. The patient is doing well clinically. He complains of some mild residual abnormal sensation in his leg but no overt numbness or weakness. His 24-hour CT scan demonstrated a questionable area of hyperattenuation however on follow-up imaging, no hemorrhage was identified. He has been seen by cardiology and is pending PT and OT evaluations. Review of Systems Review of Systems: All systems reviewed & are unremarkable except as noted in Subjective Physical Exam Constitutional: WD/WN, vitals as above Neck: trachea midline, no thyromegaly Respiratory: normal respiratory effort, lungs clear to auscultation Cardiovascular: RRR, no murmur, no edema Gastrointestinal (Abdomen): normal bowel sounds, soft, nontender, no hepatosplenomegaly Musculoskeletal: Extremities: extremities normal to inspection Skin: no rashes, warm and dry Neurologic: Nonfocal exam Lymphatic: no cervical lymphadenopathy Results & Data Results & Data Vital Signs (Past 12 Hours) Vital Signs Pulse Resp BP Pulse Ox Pulse Ox O2 Del Method 06/26/23 08:00 94 06/26/23 08:00 137/90 06/26/23 08:00 72 06/26/23 07:00 50 L 12 96 06/26/23 06:45 59 L 17 97 06/26/23 06:00 72 16 133/81 94 06/26/23 05:00 54 L 17 93 06/26/23 04:00 52 L 17 93 06/26/23 04:00 138/88 06/26/23 03:31 51 L 13 93 06/26/23 03:31 145/85 H 06/26/23 03:00 61 18 92 06/26/23 02:00 51 L 16 94 06/26/23 01:08 95 Room Air 06/26/23 01:00 58 L 16 92 06/26/23 00:00 62 18 91 06/25/23 23:00 55 L 16 93 Critical Care Results & Data Vital Signs (Past 12 Hours) Vital Signs Pulse Resp BP Pulse Ox Pulse Ox O2 Del Method 06/26/23 08:00 94 06/26/23 08:00 137/90 06/26/23 08:00 72 06/26/23 07:00 50 L 12 96 06/26/23 06:45 59 L 17 97 06/26/23 06:00 72 16 133/81 94 06/26/23 05:00 54 L 17 93 06/26/23 04:00 52 L 17 93 06/26/23 04:00 138/88 06/26/23 03:31 51 L 13 93 06/26/23 03:31 145/85 H 06/26/23 03:00 61 18 92 06/26/23 02:00 51 L 16 94 06/26/23 01:08 95 Room Air 06/26/23 01:00 58 L 16 92 06/26/23 00:00 62 18 91 06/25/23 23:00 55 L 16 93 Lab & Micro Results (Past 24 Hours) RBC 5.15 M/uL (4.70-6.10) 06/26/23 WBC 7.34 K/ul (4.8-10.8) 06/26/23 Hgb 16.1 g/dl (14.0-18.0) 06/26/23 Hct 47.2 % (42.0-52.0) 06/26/23 MCV 91.7 fL (80.0-100.0) 06/26/23 MCH 31.3 pg (25.0-34.0) 06/26/23 MCHC 34.1 g/dL (32.0-36.0) 06/26/23 RDW Standard Deviation 43.8 fL (36.4-46.3) 06/26/23 RDW Coefficient of Variation 12.9 % (11.5-14.5) 06/26/23 Plt Count 202 K/uL (130-400) 06/26/23 MPV 11.7 fL (9.4-12.4) 06/26/23 Neutrophils (%) (Auto) 65.3 % 06/26/23 Lymphocytes (%) (Auto) 19.6 % 06/26/23 Monocytes # (Auto) 0.76 K/uL (0.11-0.59) H 06/26/23 Eosinophils # (Auto) 0.26 K/uL (0.00-0.50) 06/26/23 Immature Granulocyte % (Auto) 0.4 % 06/26/23 Neutrophils # (Auto) 4.79 K/uL (1.40-6.50) 06/26/23 Lymphocytes # (Auto) 1.44 K/uL (1.20-3.40) 06/26/23 Monocytes # (Auto) 0.76 K/uL (0.11-0.59) H 06/26/23 Eosinophils # (Auto) 0.26 K/uL (0.00-0.50) 06/26/23 Basophils # (Auto) 0.06 K/uL (0.00-0.20) 06/26/23 Immature Granulocyte # (Auto) 0.03 K/uL (0.01-0.20) 3 Na 138 mmol/L (136-145) 06/26/23 K 4.3 mmol/L (3.5-5.1) 06/26/23 Cl 107 mmol/L (98-107) 06/26/23 CO2 26 mmol/L (21-32) 06/26/23 Anion Gap 5 (3-11) 06/26/23 BUN 18 mg/dl (6-23) 06/26/23 Creatinine 1.33 mg/dl (0.6-1.4) 06/26/23 Estimated GFR ( Amer) 68.3 ml/min 06/26/23 Estimated GFR (Non-Af Amer) 58.9 ml/min 06/26/23 BUN/Creatinine Ratio 13.5 (10-20) 06/26/23 Glu 108 mg/dl (70-99(Fasting)) H 06/26/23 Ca 9.0 mg/dl (8.6-10.3) 06/26/23 Mg 2.2 mg/dl (1.7-2.4) 06/26/23 03:42 Calcium Level 9.0 mg/dl (8.6-10.3) 06/26/23 03:42 Diagnostic Findings (Past 24 Hours) Venous Doppler Study 06/25/23 18:20 ULTRASOUND BILATERAL LOWER EXTREMITY VENOUS CLINICAL HISTORY: Stroke. Patent foramen ovale. Clinical concern for deep venous thrombosis. COMPARISON STUDY: No priors. TECHNIQUE: Real-time, grayscale, and color Doppler sonography of the deep veins of the right and left lower extremity was performed from the inguinal crease to the calf. Compression and augmentation were utilized. FINDINGS: There is no sonographic evidence of deep venous thrombosis identified in the right or left lower extremity. The common femoral, superficial femoral, and popliteal veins are patent and normally compressible bilaterally. The greater saphenous vein and the profunda femoris vein at the junction with the common femoral vein are clear in both legs. The visualized calf veins are patent bilaterally. IMPRESSION: There is no sonographic evidence of deep venous thrombosis identified in the right or left lower extremity. ACT 112: Negative or not required by law. Electronically signed by: Adam Maurer M.D. 06/25/2023 10:[address] 06/25/23 21:30 CT SCAN OF THE BRAIN WITHOUT IV CONTRAST CLINICAL HISTORY: Stroke status post thrombolysis. COMPARISON STUDY: CT of the brain dated 06/24/2023. MRI of the brain dated 06/25/2023. TECHNIQUE: Unenhanced axial CT scan of the brain is performed from the vertex to the skull base. A dose lowering technique was utilized adhering to the principles of ALARA. CT DOSE: 703.85 mGy.cm FINDINGS: Brain parenchyma: There is an indeterminate punctate hyperdense focus identified in the left centrum semiovale on image #23 which was not clearly seen previously. A tiny focus of hemorrhage is not excluded. No additional foci are suspicious for acute hemorrhage. There is no mass effect or evidence of acute territorial ischemia by CT criteria. [place]-white matter differentiation is pr eserved. No extra-axial fluid collection is seen. Ventricles, sulci, cisterns: Normal in configuration. Intracranial vasculature: There is atherosclerotic calcification of the cavernous carotid and vertebral arteries. Calvarium: Unremarkable. Sinuses and mastoids: There is trace mucosal thickening within the maxillary antra. The remaining visualized paranasal sinuses are clear. The mastoid air cells are well pneumatized. Orbits: The bony orbits are grossly intact. IMPRESSION: 1. There is a punctate hyperdense focus in the left centrum semiovale at the site of the tiny lacunar infarct seen by MRI. This is indeterminant and was not clearly seen previously. A punctate foci of hemorrhage is not excluded. Attention at follow-up is recommend. 2. No additional findings are suspicious for acute hemorrhage. There is no mass effect or evidence of acute territorial ischemia by CT criteria. 3. The tiny lacunar infarct in the left centrum semiovale seen by MRI is not visualized by CT. ACT 112: Negative or not required by law. Electronically signed by: Adam Maurer M.D. 06/25/2023 10:[address] 06/26/23 09:[address] DOSE: 547.75 mGy.cm HISTORY: Abnormal head CT. Follow-up. punctate hyperdense focus left centrum semiovale TECHNIQUE: Multiaxial CT images of the head were performed without the use of intravenous contrast. Automated exposure control was utilized for this study. A dose lowering technique was utilized adhering to the principles of ALARA. Comparison: Head CT 06/25/2023. Findings: The paranasal sinuses and mastoid air cells are clear. The calvarium and skull base are intact. The ventricles and sulci are within normal limits. There is no mass, hematoma, or midline shift. The patient's known punctate infarct within the left high convexity is not well visualized by this modality. The questionable punctate hyperdense focus within the left high convexity on the prior study is no longer present. Impression: 1. The patient's known small acute infarct within the left high convexity is not well visualized by this modality. 2. No intracranial hemorrhage identified. ACT 112: Negative or not required by law. Electronically signed by: Baldemar Bauer M.D. 06/26/2023 10:15 AM I & O Totals 24 Hours 06/25/23 06/26/23 06/27/23 06:59 06:59 06:59 Intake Total 600 / 600 2104 / 2104 Output Total 500 / 500 0 / 0 Balance 100 / 100 2104 / 5 Cumulative 06/24/23 20:29 thru 06/26/23 06:00 Intake Total 2705 Output Total 500 Balance 2205 RT Ventilator Mngmt (Last Documented) Ventilator Ordered Settings Respiratory Rate 12 06/26/23 07:00 Fraction of Inspired Oxygen 21 06/25/23 03:18 Ventilator - PT Measurements Respiratory Rate 12 Coding Level of Care Code 45931 SUB INP/OBS CARE 2/35MIN Diagnoses Stroke-like symptoms R29.[address] R93.89 JAIR (obstructive sleep apnea) G47.33 GERD (gastroesophageal reflux disease) K21.9
[2023-06-26] MEDS ORDERED: CLOPIDOGREL BISULFATE 75 MG TAB PO ONE (11:15)
[2023-06-26] MEDS ORDERED: ASPIRIN 81 MG ECTAB PO SCH (11:15)
--- NOTE | 2023-06-26 11:15 | Communication Note ---
Date of Service: June 26, 2023 Neurology Update: CT head reviewed - there is no evidence of hemorrhage, the initial CT read is incorrect. He is okay to continue and be discharged on aspirin 81mg daily. There is no evidence for dual antiplatelet therapy in this context. Regarding his PFO - agree with cardiology, in patients who would otherwise have a low ROPE score we do not recommend doing a bubble study in the first place as 30% of the population have a PFO. More importantly this is a small vessel, not embolic stroke. He does not need follow-up for his PFO and similarly from our perspective a zio patch is not warranted either. Patient can be discharged on aspirin monotherapy with neurology follow-up in 4-6 weeks.
[2023-06-26] MEDS ORDERED: STROKE PATIENT DISCHARGE STA (11:32)
--- NOTE | 2023-06-26 11:32 | Discharge Summary ---
Discharge Summary Date of Service June 26, 2023 Notes For Next Care Provider -Lung Nodule: Repeat CT 3-6months -Neuro follow up 4-6 weeks -Cards follow up 4-6 weeks DAPT not indicated given s/p TNK on 06/24 at 0945, will conitnue asa monotherapy Medication Changes From Visit -Lisinopril 5mg daily -Atorvastatin 40mg daily -ASA 81 mg Admission HPI Per Admitting Provider 58-year-old male with past med significant for prediabetes, obstructive sleep apnea, GERD, Boucher's esophagus without dysplasia, periodic limb movement disorder, obesity presents with right leg weakness started around 8 PM. Patient states around 8 PM he noticed his right leg was rubbery feeling and came to ER and stroke alert was called. Initial workup was unremarkable. After telestroke discussed with the patient about TNK and after going back and forth finally patient decided okay for TNK. Patient is currently s/p TNK. Currently right leg is back to normal. Patient states when he was going to CAT scan he had some blurred visions but that resolved now. Before TNK had some mild headache but that resolved now. Denies any chest pain or shortness of breath. No fevers. No cough. No nausea. No blood in the stools or black stools. Currently resting comfortably and hemodynamically stable. Past medical history. As mentioned above Past surgical history. Colonoscopy. EGD. Social history. . No smoking. Alcohol 2 beers a month. No drug use. Family history. Father had Alzheimer's disease. Kidney stones. Mother had arthritis. Blood clot. Hypertension. Maternal grandmother had breast cancer. Admission Exam Per Admitting Provider General- Not in distress Head- atraumatic Eyes- PERRL, EOMI. ENT- oropharynx clear Neck- supple, no JVD. Lungs- clear to auscultation no wheezing or crackles. Heart- regular rhythm; no murmur, no gallop. Abdomen- normal bowel sounds, soft, nontender, no distension. Extremities- no pretibial edema, no erythema seen. Neuro- alert, oriented x 3; PERRL, EOMI; no facial palsy; no dysarthria; motor 5/5 bilaterally;CAn raise lower extremity and hold for few seconds, co ordination of movements normal. Finger nose test normal.No pronator drift, sensations intact. Skin- warm & dry Principal Dx & Hospital Course #1 = Principal Diagnosis (1) Stroke-like symptoms: Mr. Lopez is a 58-year-old male with past med significant for prediabetes, obstructive sleep apnea, GERD, Boucher's esophagus without dysplasia, periodic limb movement disorder, obesity who presented to [facility] on 06/24 with right leg weakness started around 8 PM, received TNK around 945pm, with resolution of neurologic symptoms. MRI postived for Left side small lacunar stroke. Telemetry reviewed without arrhythmia. ECHO with small PFO, however, location not embolic and presence likely incidental. Reviewed by Cardiology who felt the same. #Strokelike symptoms #Right leg weakness S/p TNK 06/24, Right leg weakness improved PT/OT without needs Start ASA 81mg Start Atorvastatin 40mg daily #HTN LVH on ECHO Start Lisinopril 5mg daily Obstructive sleep apnea CPAP nightly Prediabetes 5.8% Boucher's esophagus Omeprazole Lung nodule Needs follow-up On day of discharge, patient denied any acute concerns, ambulating without difficulty, endorsing strong appetite. No pain reported. Discharge Exam Constitutional WD/WN, vitals as above Cardiovascular RRR, no murmur, no edema Neurologic PERRL, EOMI, accommodation nl, no face palsy, no dysarthria strength intact Updated Medication List Medication Instructions Recorded Confirmed Type fluticasone propionate 50 2 spray intranasal QAM 06/24/23 06/24/23 History mcg/actuation nasal spray,suspension gabapentin 100 mg capsule 100 mg PO HS 06/24/23 06/24/23 History omeprazole 20 mg capsule,delayed 20 mg PO DAILY 06/24/23 06/24/23 History release aspirin 81 mg capsule 81 mg PO DAILY #30 caps 06/26/23 Rx atorvastatin 40 mg tablet 40 mg PO QAM #30 tabs 06/26/23 Rx lisinopril 5 mg tablet (Zestril) 5 mg PO QAM 30 days #30 tabs 06/26/23 Rx Hospital Stay Data Consultations 06/24/23 21:58 ED Decision to Admit Stat 06/25/23 01:08 Consult [employer] Routine 06/25/23 08:00 Consult Neurology Routine 06/25/23 18:25 Consult Cardiology Routine Diagnostic Imagining Performed 06/24/23 20:41 CT angio chest dissec wo/w con Stat CT angio head w con Stat CT angio neck with con Stat CT head/brain wo con Stat 06/25/23 01:08 MR brain wo/w con Routine 06/25/23 18:20 US venous duplex leg [US venous doppler LE BI] Urgent 06/25/23 21:30 CT head/brain wo con Stat 06/26/23 09:30 CT head/brain wo con Stat Pending Results Patient Have Any Pending Studies at Discharge: No Discharge Instructions Given to Patient (Per Discharging Provider) You were admitted for concerns of weakness/"wobbly" sensation of right lower extremity and found to have a small left-sided "lacunar" stroke that correlates to your right sided leg symptoms. You were given TNK, "clot buster", that seemed to aid in the resolution of your symptoms. You were seen by Cardiology for ECHO findings of PFO (patent foramen ovale) in your heart--this does not correlate to the location of your stroke, and is common finding in 30% of population. Cardiology will set up to follow up with you in 1 months time. You were seen by Neurology, who noted significant recovery and no signs of hemorrhage on your scans. Initially, it was thought to start on "dual" antiplatelets, but given you received TNK, this is not required regimen. You will start a daily aspirin 81mg indefinitely. Here are the added medications: -Atorvastatin 40mg daily for cholesterol control -ASA 81mg daily as an antiplatelet to aid in secondary stroke prevention -Lisinopril 5mg daily for blood pressure control You can resume home medications as prescribed by PCP. Additionally, your imaging scans revealed a small Right upper lobe nodule measuring 12 mm in your lung. This nodules are frequent, especially in individuals who have a smoking history, history of lung infections (pneumonias), occupational exposure. It does require follow up with your PCP to place order for repeat scan in 3-6 months to ensure it remains "stable." Total Time Total Time Spent Total Time Spent (In Minutes): 45
--- NOTE | 2023-06-28 11:27 | Pharmacy Report ---
Pharmacist Stroke Counseling - Date of Service June 28, 2023 - Scope: Pharmacy has been consulted to provide medication discharge counseling for this patient admitted with a lacunar stroke as per the Pharmacist Discharge Counseling for Stroke Patients Protocol. - Medications on Discharge: Home Medications Medication Instructions Recorded Confirmed fluticasone propionate 50 2 spray intranasal QAM 06/24/23 06/24/23 mcg/actuation nasal spray,suspension gabapentin 100 mg capsule 100 mg PO HS 06/24/23 06/24/23 omeprazole 20 mg capsule,delayed 20 mg PO DAILY 06/24/23 06/24/23 release New Rx's Medication Instructions Recorded aspirin 81 mg capsule 81 mg PO DAILY #30 caps 06/26/23 atorvastatin 40 mg tablet 40 mg PO QAM #30 tabs 06/26/23 lisinopril 5 mg tablet (Zestril) 5 mg PO QAM 30 days #30 tabs 06/26/23 - Action: The above medications, specifically ones for stroke treatment/prophylaxis, have been reviewed in detail with the patient and/or patient teleservices representative(s) prior to discharge. This includes indication, common adverse reactions, drug interactions, and medication administration. Medication counseling has been employed using the teach-back method to ensure understanding. - Outcome: The patient and/or patient teleservices representative(s) have demonstrated understanding of the medications. Additional comments: Spoke with Javan regarding his changes to stroke medication regimen. He has picked up his medications from the pharmacy and has been taking. Reviewed why to take aspirin, Lipitor and lisinopril as well as side effects. Emphasized the importance of maintaining blood glucose within goal range for stroke preventation as well as continued use of CPAP to help reduce the risk of stroke. Thank you for allowing pharmacy to be involved in the care of this patient. Please call [phone] with any additional questions
== END 2023-06-26 12:15 | disposition home or self-care (01) | DRG 62 ==
LOC: ED 20:29 → 1E 06-25 00:32